=== PATIENT | male | born 1980 | race Caucasian/White ===

== ENCOUNTER → 2016-08-31 | Emergency (ER) | payer SELFPAY ==
[2016-08-31 20:02] VITALS: TEMP 97.7
--- NOTE | 2016-08-31 20:36 | ED.PDOC ---
History of Present Illness - General Chief Complaint: ENT Problem Stated Complaint: throat feels tight Time Seen by Provider: 08/31/16 20:30 Source: patient, family Exam Limitations: no limitations Additional Information: PT STATES H/O JORGE AND WHEN HE TRIES TO YAWN, HIS THROAT FEELS BLOCKED. STARTED LAST NOC. SIMILAR HAS HAPPENED 2X PRIOR AND HIS PCP (KASSY BRODY IN [place]) ORDERED SLEEP STUDY BUT PT REFUSED D/T COST. I INFORMED PT ABOUT FREE OR LOW COST HOME APNEA STUDY. DENIES RECENT URI. IS COVERED IN TATTOOS AND NURSES STATE HE WAS POS FOR METH IN THE PAST BUT PT AND GIRLFRIEND DENY ILLICIT DRUG USE. IT DID NOT START AFTER EATING (NO FOOD BOLUS). - History of Present Illness Timing/Duration: gradual Prearrival Treatment: no prearrival treatment Improving Factors: nothing Worsening Factors: nothing Allergies/Adverse Reactions: Allergies NO KNOWN ALLERGY Allergy (Verified 06/15/16 21:00) Home Medications: Ambulatory Orders NK [NK] 08/31/16 Review of Systems - Review of Systems Constitutional: Denies: chills, diaphoresis, fever, malaise, weakness EENTM: Denies: blurred vision, ear pain, ear discharge, nose congestion, throat pain, mouth pain Respiratory: Denies: cough, stridor, wheezing Cardiology: States: no symptoms reported. Denies: chest pain Gastrointestinal/Abdominal: States: no symptoms reported Genitourinary: States: no symptoms reported Musculoskeletal: States: no symptoms reported Skin: States: no symptoms reported Neurological: States: no symptoms reported Endocrine: States: no symptoms reported Hematologic/Lymphatic: States: no symptoms reported All other Systems: Reviewed and Negative Past Medical History (General) - Patient Medical History Hx Seizures: No Hx Stroke: No Hx Dementia: No Hx Asthma: No Hx of COPD: No Hx Cardiac Disorders: No Hx Congestive Heart Failure: No Hx Pacemaker: No Hx Hypertension: No Hx Thyroid Disease: No Hx Diabetes: No Hx Gastroesophageal Reflux: No Hx Renal Disease: No - Vaccination History Hx Tetanus, Diphtheria Vaccination: Yes Hx Influenza Vaccination: No Hx Pneumococcal Vaccination: No - Social History Hx Tobacco Use: No Hx Alcohol Use: No Hx Substance Use: Yes Hx Substance Use Treatment: Yes Hx Depression: Yes - Female History Patient : No Family Medical History - Family History Mother Family History: Unknown Living Status: Physical Exam - Physical Exam General Appearance: Alert, Other - TATTOES ON MOST EXPOSED SKIN INCLUDING FACE. Eye Exam: bilateral normal Ear Exam: bilateral ear: TM normal Nasal Exam: normal inspection Throat Exam: normal mouth inspection, pharynx normal, other - NO DROOLING Neck: non-tender, full range of motion, supple, other - NO EDEMA. Cardiovascular/Respiratory: regular rate, rhythm, no M/R/G, normal peripheral pulses, no JVD, normal breath sounds, no respiratory distress Abdominal Exam: non-tender Neurologic: supervisor photoengraving II-XII nml as tested, no motor/sensory deficits, oriented x 3 Skin Exam: normal color, warm/dry Progress - Results/Orders Results/Orders: XRAY SOFT TISSUE NECK NEG. P.E. NEG FOR AIRWAY CONCERN. LUNGS CLEAR. NO DROOLING. NECK NTTP AND NO MASSES. OROPHARYNX CLEAR. PT REMAINED IN E.D. FOR APPROX 2 HRS AFTER I INFORMED THE STAFF HE WAS SAFE FOR DC. AFTER MY LACERATION REPAIR I NOTICED HE WAS STILL IN ED SO I SPOKE WITH HIM AGAIN AND EXPLAINED HE WAS SAFE FOR DC AND ADVISED TO F/U WITH PCP AND SEE ENT FOR POSSIBLE PHARYNGOSCOPE FOR FURTHER EVAL. HE EXPRESSED HE WAS COMFORTABLE WITH THIS PLAN. SOME TIME AFTER THEN, THE PT ELOPED WITHOUT STAFF' S KNOWLEDGE, HENCE HE WAS NOT DISCHARGED AND DID NOT SIGN AMA FORM. Departure - Departure Clinical Impression: Globus sensation Disposition: Left Against Medical Advice Condition: Good Departure Forms: ED Discharge - Pt. Copy, Patient Portal Self Enrollment Diet: resume usual diet Referrals: [Primary Care Provider] - 1-5 Days Home Medications: Ambulatory Orders NK [NK] 08/31/16
[2016-08-31 22:29] VITALS: BP 117/65; O2SAT 99
--- NOTE | 2016-09-21 23:54 | RAD ---
EXAM: Neck,Soft Tissue CLINICAL INDICATION: 36-year-old male with feels like throat is closing. TECHNIQUE: Two-view, PA and lateral projections of theSoft tissues were obtained. COMPARISON: None. FINDINGS: Limited view of the lung apices are clear. Prevertebral soft tissues are within normal limits. The airway is patent. The visualized bones reveal mild degenerative change of the cervical spine. IMPRESSION: No specific findings are noted to suggest etiology of the patient's symptoms. Electronically signed by: Rivka Hines MD 08/31/2016 9:18 PM HEADING MACHINE OPERATOR
== END | disposition left against medical advice (07) ==
LOC: ER 19:43
DX: F45.8 Other somatoform disorders (principal)

== ENCOUNTER → 2016-09-18 | Outpatient (CLI) | payer MEDICAID, OTHER ==
--- NOTE | 2016-09-19 16:15 | RAD ---
EXAM DESCRIPTION: XR KNEE 4 OR MORE VIEWS CLINICAL HISTORY: KNEE PAIN COMPARISON: October 19, 2013 IMPRESSION: Three views of the left knee show no evidence of acute fracture, focal bone destruction, or joint dislocation. No advanced arthrosis is seen. Soft tissues are unremarkable. Electronically signed by: Tc Torres MD 09/19/2016 16:13
== END | disposition home or self-care (01) ==
LOC: RAD 12:17
PROVIDERS: ATTEND Nurse Practitioner Family
DX: M25.562 Pain in left knee (principal)

== ENCOUNTER 2016-09-21 19:37 | Emergency (ER) | payer MEDICAID, OTHER ==
[2016-09-21] MEDS ORDERED: IPRATROPIUM/ALBUTEROL 3 ML VIAL NEB ONE (20:18)
[2016-09-21] MEDS ORDERED: AZITHROMYCIN 250 MG TAB PO ONE (21:17)
--- NOTE | 2016-09-21 21:20 | ED.PDOC ---
History of Present Illness - General Chief Complaint: Back Pain or Injury Stated Complaint: back pain, left knee pain Time Seen by Provider: 09/21/16 20:06 Source: patient Exam Limitations: no limitations - History of Present Illness Initial Comments: The patient is a 36-year-old male with a fairly convoluted medical history. The patient has had significant ligamentous injury to his left knee for several years. He was apparently scheduled for surgery but then went to shelter and did not get it done. He has been reporting for the last 3 months and instability in the knee with going up stairs and with certain movements at work. The knee is causing him some pain. No recent real injuries. No falls. The patient is also reporting some malaise and some mild diffuse mid to upper back discomfort. He is reporting a mild cough and possibly some mild low-grade fevers. He does have a history of drug abuse. No syncope or near-syncope. No chest pain or palpitations. Timing/Duration: unsure, 24 hours Severity: moderate Improving Factors: nothing Worsening Factors: movement Associated Symptoms: cough, loss of appetite, malaise Allergies/Adverse Reactions: Allergies NO KNOWN ALLERGY Allergy (Verified 06/15/16 21:00) Home Medications: Ambulatory Orders Azithromycin 500 mg PO DAILY #5 tab 09/21/16 Review of Systems - Review of Systems Constitutional: States: fever, malaise EENTM: States: nose congestion Respiratory: States: cough, short of breath - mild Cardiology: States: no symptoms reported Gastrointestinal/Abdominal: States: no symptoms reported Genitourinary: States: no symptoms reported Musculoskeletal: States: back pain Skin: States: no symptoms reported Neurological: States: no symptoms reported All other Systems: No Change from Baseline Past Medical History (General) - Patient Medical History Hx Seizures: No Hx Stroke: No Hx Dementia: No Hx Asthma: No Hx of COPD: No Hx Cardiac Disorders: No Hx Congestive Heart Failure: No Hx Pacemaker: No Hx Hypertension: No Hx Thyroid Disease: No Hx Diabetes: No Hx Gastroesophageal Reflux: No Hx Renal Disease: No Surgical History: other - Vaccination History Hx Tetanus, Diphtheria Vaccination: Yes Hx Influenza Vaccination: No Hx Pneumococcal Vaccination: No Immunizations Up to Date: Yes - Social History Hx Tobacco Use: Yes Hx Alcohol Use: Yes Hx Substance Use: Yes Hx Substance Use Treatment: Yes Hx Depression: Yes - Female History Patient : No Family Medical History - Family History Mother Family History: Unknown Living Status: Physical Exam - Physical Exam General Appearance: Alert, Comfortable, No apparent distress Eye Exam: bilateral normal Ears, Nose, Throat: hearing grossly normal, normal pharynx, nasal congestion Neck: full range of motion, supple Respiratory: chest non-tender, no respiratory distress, no accessory muscle use , rales - mild left lower lobe Cardiovascular/Chest: normal peripheral pulses, regular rate, rhythm, no edema Peripheral Pulses: radial,right: 2+, radial,left: 2+, dorsalis pedis,right: 2+, dorsalis pedis,left: 2+, posterior tibialis,right: 2+, posterior tibialis,left: 2+ Gastrointestinal/Abdominal: non tender, soft Rectal Exam: deferred Back Exam: normal inspection, no CVA tenderness, no vertebral tenderness Extremity: normal range of motion, normal inspection, no pedal edema, no calf tenderness, normal capillary refill, other - he does favor the left knee when walking Neurologic: no motor/sensory deficits, alert, normal mood/affect, oriented x 3 Skin Exam: normal color, other - he does have significant hair loss below the mid howard line. Pulses are strong and palpable in the dorsalis pedis and posterior tibialis Comments: Vital Signs - 24 hr 09/21/16 09/21/16 19:58 20:26 Temperature 99.1 F Pulse Rate [ 108 H monitor] Respiratory 20 20 Rate Blood Pressure 119/81 [Left Arm] O2 Sat by Pulse 93 L Oximetry Progress - Progress Progress: 09/21/16 21:22 the patient is a 36-year-old male presenting with several different complaints. The patient has a long-standing left knee injury and is being placed in a knee immobilizer. He needs to follow up with orthopedics for further evaluation. Ibuprofen can be used for discomfort for this. Additionally the patient may have a small left lower lobe pneumonia. He was given a dose of azithromycin tonight and will be written for 5 days as an outpatient. He needs to follow up with his primary care doctor towards the end of the course to make sure that his lungs are clearing up and to address any residual issues. ER warnings are given for any acute worsening. Keep well- hydrated. 09/21/16 21:25 the patient has had recent x-rays and lab work that are reassuring. He does need to avoid drug use. A nebulizer treatment given to him here tonight did not make any difference. - Results/Orders Results/Orders: 09/21/16 20:16 DME - Durable Medical Equ[employer] .ONCE 09/21/16 20:59 [facility] .PRN Laboratory Results - last 24 hr 09/21/16 09/21/16 20:25 20:30 POC Glucose 103 Urine Color Yellow Urine Appearance Clear Urine pH 7.5 Ur Specific [place] 1.020 Urine Protein Negative Urine Glucose (UA) Negative Urine Ketones Negative Urine Blood Negative Urine Nitrite Negative Urine Bilirubin Negative Urine Urobilinogen 0.2 Ur Leukocyte Esterase Negative Urine RBC 0 Urine WBC 0-1 Ur Epithelial Cells 0-1 Urine Bacteria 0 Departure - Departure Clinical Impression: Pneumonia Qualifiers: Pneumonia type: due to unspecified organism Laterality: left Lung location: lower lobe of lung Qualifier Code: (J18.9) Pneumonia, unspecified organism Knee pain, chronic Qualifiers: Laterality: left Qualifier Code: (M25.562) Pain in left knee Disposition: Discharge to Home or Self Care Condition: Fair Departure Forms: ED Discharge - Pt. Copy, Patient Portal Self Enrollment Instructions: DI for Knee Pain, Pneumonia-Adult Diet: low salt diet Activity: no pushing/pulling with affected limb Referrals: [Primary Care Provider] - 1-2 Weeks Prescriptions: Azithromycin 500 mg PO DAILY #5 tab Home Medications: Ambulatory Orders Azithromycin 500 mg PO DAILY #5 tab 09/21/16 Additional Instructions: the patient is a 36-year-old male presenting with several different complaints. The patient has a long-standing left knee injury and is being placed in a knee immobilizer. He needs to follow up with orthopedics for further evaluation. Ibuprofen can be used for discomfort for this. Additionally the patient may have a small left lower lobe pneumonia. He was given a dose of azithromycin tonight and will be written for 5 days as an outpatient. He needs to follow up with his primary care doctor towards the end of the course to make sure that his lungs are clearing up and to address any residual issues. ER warnings are given for any acute worsening. Keep well- hydrated.
[2016-09-21 21:44] VITALS: BP 123/80; TEMP 99; O2SAT 94
== END 2016-09-21 21:44 | disposition home or self-care (01) ==
LOC: ER 19:37
DX: J18.9 Pneumonia, unspecified organism (principal); M25.562 Pain in left knee; Z87.891 Personal history of nicotine dependence
CPT/HCPCS: 36416; 81001; 82948; 87502; 94640; J7620; Q0144

== ENCOUNTER → 2016-10-07 | Outpatient (CLI) | payer MEDICAID, OTHER | LOC: SL 20:08 | PROVIDERS: ATTEND Nurse Practitioner Family | DX: G47.30 Sleep apnea, unspecified (principal) ==

== ENCOUNTER → 2016-10-13 | Outpatient (CLI) | payer MEDICAID, OTHER ==
--- NOTE | 2016-10-13 10:24 | RAD ---
EXAM DESCRIPTION: Knee,Left Complete CLINICAL HISTORY: PAIN IN LEFT KNEE COMPARISON: September 19, 2016 IMPRESSION: 3 standing views of the left knee show no evidence of acute fracture, focal bone destruction, or joint dislocation. No advanced arthrosis. There is an oval peripherally calcified structure posterior to the tibial plateau seen only on lateral projection new from previous. This could be external to the patient versus calcification or partly calcified body in possible Arndt's cyst. The calcification posterior to the joint seen on lateral projection of previous exam appears more cephalic on today's exam. This is not well seen on AP view and could also be within the joint space/Arndt's cyst or soft tissues. Electronically signed by: Tc Torres MD 10/13/2016 10:23 AM CDT
--- NOTE | 2016-10-13 10:26 | RAD ---
EXAM DESCRIPTION: Pelvis CLINICAL HISTORY: PAIN IN LEFT HIP COMPARISON: None. IMPRESSION: Single AP supine view of the pelvis shows no evidence of acute fracture, focal bone destruction, or joint dislocation. Smoothly marginated osseous body superior to the left trochanter could represent heterotopic ossification or sequela of prior trauma. There is a bony protuberance extending lateral and superior to the left acetabulum that could represent osteochondroma as there may be some continuation of the medullary space versus sequela of remote prior trauma. No advanced arthrosis is identified. Electronically signed by: Tc Torres MD 10/13/2016 10:26 AM CDT
== END | disposition home or self-care (01) ==
LOC: RAD 08:00
PROVIDERS: ATTEND Orthopaedic Surgery
DX: M25.562 Pain in left knee (principal); M25.552 Pain in left hip

== ENCOUNTER → 2016-10-20 | Outpatient (CLI) | payer OTHER | END | disposition home or self-care (01) | LOC: YCFC.O 14:42 | PROVIDERS: ATTEND Nurse Practitioner Family | DX: E03.9 Hypothyroidism, unspecified (principal); G47.33 Obstructive sleep apnea (adult) (pediatric) ==

== ENCOUNTER → 2016-10-21 | Outpatient (CLI) | payer MEDICAID, OTHER ==
--- NOTE | 2016-10-22 13:09 | MRI ---
EXAM DESCRIPTION: Knee,Left CLINICAL HISTORY: PAIN COMPARISON: None Available. TECHNIQUE: MRI of the left knee is performed according to our usual protocol with multiplanar multi sequence imaging. FINDINGS: Small left knee joint effusion. There is a small popliteal cyst which is complex with several elongated loose bodies within an unusual superior recess. These loose bodies are related almost certainly to the patellar chondrosis. Evaluation of articular surfaces of the left knee joint shows advanced patellofemoral chondrosis with a large area of mixed grade 3/4 chondrosis in the central superior aspect of the patella measuring about 10 mm in diameter. Deep fissuring, in areas full-thickness, and marked ragged irregular appearance of the articular surface is present in this region and there is subchondral edema and cyst formation/eburnation in this portion of the patella. There is grade 1/2 chondrosis throughout most of the trochlea with an area of focal grade 3 change in the inferior central trochlea. Medial and lateral compartment articular surfaces are unremarkable. Cruciate and collateral ligaments are intact. Menisci are intact. IMPRESSION: 1. 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 Electronically signed by: Renny Hawley MD 10/22/2016 1:08 PM CDT
== END | disposition home or self-care (01) ==
LOC: MRI 13:58
PROVIDERS: ATTEND Orthopaedic Surgery
DX: M17.12 Unilateral primary osteoarthritis, left knee (principal); M94.8X8 Other specified disorders of cartilage, other site

== ENCOUNTER → 2016-11-13 | Emergency (ER) | payer OTHER | END | disposition left against medical advice (07) | LOC: ER 22:20 | DX: Z53.21 Procedure and treatment not carried out due to patient leaving prior to being seen by health care provider (principal) ==

== ENCOUNTER → 2016-12-01 | Outpatient (CLI) | payer OTHER | LOC: RAD 08:22 | PROVIDERS: ATTEND Orthopaedic Surgery | DX: Z01.818 Encounter for other preprocedural examination (principal) ==

== ENCOUNTER 2016-12-23 05:40 | Day surgery (SDC) | payer OTHER ==
--- NOTE | 2016-12-18 09:01 | HP ---
CHIEF COMPLAINT: Left knee pain. HISTORY OF PRESENT ILLNESS: Beata is a 36-year-old male with a history of left knee pain that has been going on for a very long time. He has had remote trauma , but has not had any recent trauma. He denies any neurologic symptoms or radiation of pain. He has had extensive conservative measures which have included injections, anti-inflammatories, bracing and local modalities. Unfortunately, he has been unable to get any significant relief. Because of that, he has requested operative intervention. We have done MRI, x-rays, and physical examination which indicate there could be some intraarticular pathology , however, we have also talked about the fact that just given his lack of clear findings, we are not sure of the exact pathology and we will not know until the time of surgery. He understands that and the patient has given informed consent for knee arthroscopy. PAST SURGICAL HISTORY: None. MEDICATIONS: 1. Prozac. ALLERGIES: NO KNOWN DRUG ALLERGIES. CODE STATUS: Full code. IMMUNIZATIONS: Up to date. SOCIAL HISTORY: The patient denies tobacco, alcohol or drug use at this time. FAMILY HISTORY: None pertinent to today's complaint. REVIEW OF SYSTEMS: Negative except as indicated in the History of Present Illness. PHYSICAL EXAMINATION: VITAL SIGNS: Blood pressure 122/84. Pulse 83. Height 5'8". Weight 229. MENTAL STATUS: The patient is awake, alert, and is able to give a good history and participate in the physical. The patient is oriented to person, place and time. SKIN: Normal tone and turgor. MUSCULOSKELETAL: He is very tender along the medial joint-line. He has very slight increased anterior translation relative to the contralateral side. He does have a firm endpoint. He has no effusion today. He has some crepitus with range of motion and some light clicking medially. Strength is 5/5 throughout. There is no varus/valgus instability. ASSESSMENT: 1. Knee pain with possible meniscus tear. PLAN: The plan at this point is for knee arthroscopy. We have discussed the risks, benefits, and alternatives to that and the patient has given informed consent. #[id number] [facility]
--- NOTE | 2016-12-18 09:27 | RAD ---
EXAM DESCRIPTION: Chest,2 Views CLINICAL HISTORY: 36 years Male, respiratory evaluation prior to a surgical procedure IMPRESSION: Lungs are clear. No pleural effusion or pneumothorax. Heart size is normal. Electronically signed by: Willi Robles MD 12/18/2016 9:27 AM CDT
[2016-12-23] MEDS ORDERED: fentaNYL CITRATE INJ 50 MCG/ML AMP ONE (06:29)
[2016-12-23] MEDS ORDERED: LIDOCAINE 2 % GEL 5 ML TUBE TOP ONE ×2 (06:29→09:41)
[2016-12-23] MEDS ORDERED: ceFAZolin SODIUM 1 GM VIAL ONE ×2 (07:03→07:43)
[2016-12-23] MEDS ORDERED: BUPIVACAINE 0.25% W/EPI 50 ML VIAL INJ ONE (07:03)
[2016-12-23] MEDS ORDERED: VANCOMYCIN HCL INJ 1,000 MG VIAL IVPB ONE (07:04)
[2016-12-23] MEDS ORDERED: SODIUM CHL 0.9% 100ML MINI-BAG 100 ML IVPB ONE (07:43)
[2016-12-23] MEDS ORDERED: LACTATED RINGERS 1,000 ML ONE (07:43)
[2016-12-23] MEDS ORDERED: PROPOFOL 200 MG/20 ML VIAL IV ONE (12:00)
[2016-12-23] MEDS ORDERED: HYDROcodone 5MG/APAP 325MG 1 EA TAB PO ONE (12:35)
[2016-12-23] MEDS ORDERED: HYDROcodone 5MG/APAP 325MG 1 EA TAB ONE (12:40)
[2016-12-23 13:30] VITALS: BP 140/78; TEMP 98.3; O2SAT 95
--- NOTE | 2016-12-24 08:50 | OP ---
DATE OF PROCEDURE: 12/23/16 PREOPERATIVE DIAGNOSIS: 1. Knee pain. POSTOPERATIVE DIAGNOSIS: 1. 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 PROCEDURE: 1. Debridement/chondroplasty. SURGEON: Adi Monroy MD. BLINDSTITCH MACHINE OPERATOR: Russ Singh CST, SA-C. ANESTHESIA: General. COMPLICATIONS: None. FINDINGS: 1. Normal medial meniscus. 2. Normal medial compartment cartilage. 3. Normal anterior cruciate ligament, normal posterior cruciate ligament. 4. Normal lateral meniscus. 5. Area of nonarticular cartilage measuring about 1 by 0.8 cm on the lateral femoral condyle with previous cartilaginous damage and what appeared to be fibrous cartilaginous tissue overgrowth. 6. Normal lateral gutter. 7. Normal suprapatellar pouch. 8. Advanced chondromalacia of the patellofemoral joint with some unstable cartilage on the patella. 9. Normal medial gutter. INDICATION: Beata has a long history of pain in the knee with failure of conservative measures which have included anti-inflammatories, physical therapy , and injections. Subsequent to his failure of conservative measures and ongoing pain, he requested operative intervention. After discussing the risks, benefits and alternatives to that, the patient has given informed consent for the above procedures. PROCEDURE: The patient was brought to the Operating Room and placed in supine position. General anesthesia was induced and the patient's leg was sterilely prepped and draped. Following prepping and draping, standard anteromedial and anterolateral portals were established. Diagnostic arthroscopy was carried out with the above findings. Following diagnostic arthroscopy, attention was focused on the lateral femoral condyle. The camera was moved into the medial compartment and through the lateral portal, a 3.5 mm full radius shaver was used to debride the aforementioned defect to stable base. The camera was again placed back into the lateral portal and an accessory superolateral portal was established. The defect in the patella was thoroughly probed and a 3.5 mm full radius shaver was used to debride that. It was probed again. There were no unstable fragments. The knee was thoroughly irrigated and then drained. Following draining of the knee, the wounds were closed with Nylon suture. Sterile dressings were placed. The patient was awoken from anesthesia and taken to Recovery. POSTOPERATIVE INSTRUCTIONS: The patient will be partial weightbearing until followup with me in 2 days. We will consider physical therapy following surgical intervention. #[id number] [facility]
== END 2016-12-23 13:05 | disposition home or self-care (01) ==
LOC: AMB 05:40
PROVIDERS: ATTEND Orthopaedic Surgery
DX: M25.562 Pain in left knee (principal); M22.42 Chondromalacia patellae, left knee
CPT/HCPCS: 01400; 29877; 36415; 71020; 80048; 85025; J0690; J3010; J3370; J3490; J7050; J7120

== ENCOUNTER → 2016-12-30 | Outpatient (CLI) | payer OTHER ==
--- NOTE | 2016-12-30 10:23 | RAD ---
Study: Frontal and Lateral Views of the Chest. Indication: R06.00, S/P SURGERY X 7 DAYS Comparison: December 18, 2016. Impression: Heart size normal. Mild basilar atelectasis, otherwise lungs clear. No acute osseous abnormality. Electronically signed by: Franco Quezada MD 12/30/2016 10:23 AM CDT
== END | disposition home or self-care (01) ==
LOC: YCFC.O 10:02
PROVIDERS: ATTEND Nurse Practitioner Family
DX: R06.00 Dyspnea, unspecified (principal)

== ENCOUNTER 2017-12-02 20:37 | Observation (INO) | payer SELFPAY ==
[2017-12-02] MEDS ORDERED: SODIUM CHLORIDE 0.9% 1000ML 1,000 ML ONE (20:54)
[2017-12-02] MEDS ORDERED: SODIUM CHLORIDE 0.9% 1000ML 1,000 ML IVS ONE ×2 (20:55→20:59)
[2017-12-02] MEDS ORDERED: ONDANSETRON INJ 4 MG/2 ML VIAL IV ONE (20:57)
[2017-12-02] MEDS ORDERED: SODIUM CHLORIDE 0.9% (FLUSH) 10 ML SYG IV PRN (20:57)
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
--- NOTE | 2017-12-02 21:26 | RAD ---
EXAM DESCRIPTION: Chest,1 View CLINICAL HISTORY:37 years Male, heat exhaustion, dizzy, short of breath Comparison: December 30, 2016 FINDINGS: No focal lung consolidation. No pleural effusion. No pneumothorax. Cardiac and mediastinal silhouette is unremarkable. No acute osseous abnormality. Soft tissues are unremarkable. IMPRESSION: No acute findings. No focal lung consolidation. Electronically signed by: Terell Garcia MD 12/02/2017 9:24 PM CDT
[2017-12-02] MEDS ORDERED: LACTATED RINGERS 1,000 ML ONE (21:34)
[2017-12-02] MEDS ORDERED: LACTATED RINGERS 1,000 ML IVS ONE (21:35)
[2017-12-02] MEDS ORDERED: TETANUS,DIPHTHERIA,PERTUSSIS 1 EA SYG IM ONE (21:42)
[2017-12-02] MEDS ORDERED: SODIUM BICARBONATE VIAL 100 MEQ in SODIUM CHLORIDE 0.9% 1000ML 1,000 ML IVS PRN (22:51)
[2017-12-02] MEDS ORDERED: SODIUM BICARBONATE VIAL 50 MEQ/50 ML VIAL ONE (22:57)
[2017-12-02] MEDS ORDERED: MAGNESIUM SULFATE PREMIX 2GM 2 GM in PREMIX BAG 1 BAG IVPB ONE (23:11)
[2017-12-02] MEDS ORDERED: MAGNESIUM SULFATE PREMIX 2GM 50 ML IVPB ONE (23:16)
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
[2017-12-03] MEDS ORDERED: SODIUM CHLORIDE 0.9% 50ML 50 ML ONE (00:29)
[2017-12-03] MEDS ORDERED: MAGNESIUM SULFATE INJ 5 GM/10 ML VIAL ONE (00:30)
[2017-12-03] MEDS ORDERED: SODIUM CHLORIDE 0.9% (FLUSH) 10 ML SYG IV PRN (00:38)
[2017-12-03] MEDS ORDERED: IV SET AND CAP CHANGE INJ INJ SCH (01:00)
[2017-12-03] MEDS ORDERED: SODIUM BICARBONATE VIAL 50 MEQ/50 ML VIAL IV ONE (01:08)
[2017-12-03] MEDS ORDERED: DEXTROSE 5% 1000ML 1,000 ML IVS ONE ×5 (01:09→22:06)
[2017-12-03] MEDS ORDERED: SODIUM BICARBONATE VIAL 50 MEQ/50 ML VIAL ONE ×6 (01:09→22:14)
[2017-12-03] MEDS: SODIUM BICARBONATE VIAL 100 MEQ in DEXTROSE 5% 1000ML 1,000 ML IVS PRN ×4 (01:16→22:04)
[2017-12-03] MEDS: ENOXAPARIN SODIUM 40 MG/0.4 ML SYG SUBCU SCH (01:16)
[2017-12-03] MEDS ORDERED: ACETAMINOPHEN 500 MG TAB PO ONE (05:52)
[2017-12-03] MEDS ORDERED: POTASSIUM CHLORIDE 20 MEQ TAB PO ONE (11:02)
[2017-12-03] MEDS ORDERED: traMADol HCL 50 MG TAB PO PRN (11:02)
[2017-12-03] MEDS: PANTOPRAZOLE SODIUM IV 40 MG VIAL IV SCH (12:00)
[2017-12-03] MEDS ORDERED: HYDROcodone 5MG/APAP 325MG 1 EA TAB PO PRN (14:52)
[2017-12-03] MEDS ORDERED: TEMAZEPAM 15 MG CAP PO PRN (15:14)
[2017-12-03] MEDS ORDERED: traZODone HCL 50 MG TAB PO SCH (21:00)
[2017-12-03] MEDS ORDERED: traZODone HCL 100 MG TAB PO ONE (21:01)
[2017-12-03] MEDS ORDERED: FLUoxetine HCL 20 MG CAP ONE (21:01)
[2017-12-03] MEDS ORDERED: SODIUM BICARBONATE SYRINGE 50 MEQ/50 ML SYG IV ONE (22:07)
[2017-12-04] MEDS: ENOXAPARIN SODIUM 40 MG/0.4 ML SYG SUBCU SCH (00:51)
[2017-12-04] MEDS ORDERED: FLUoxetine HCL 20 MG CAP PO SCH (07:00)
[2017-12-04] MEDS ORDERED: POTASSIUM CHLORIDE 20 MEQ TAB PO ONE (08:18)
[2017-12-04] MEDS ORDERED: DULoxetine HCL 30 MG CAP PO SCH (09:00)
[2017-12-04] MEDS: PANTOPRAZOLE SODIUM IV 40 MG VIAL IV SCH (11:40)
[2017-12-04 12:57] VITALS: O2SAT 95
[2017-12-04 13:14] VITALS: BP 110/70; TEMP 98.7
--- NOTE | 2017-12-04 15:26 | DS ---
SUPERVISING PHYSICIAN: Ryne Velazco M.D. DISCHARGE DIAGNOSIS: 1. Acute kidney injury secondary to heat exhaustion. 2. Rhabdomyolysis secondary to heat exhaustion and dehydration. 3. Heat exhaustion. 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 He tried to drink water to hydrate, but each time he tried to hydrate, he vomited. He finished his shift and went home, took a shower and tried to rehydrate, but he was so weak and unable to keep fluids down that he came to the Emergency Room. In the Emergency Room, his sodium was 135 with potassium 3.8. Chloride 102, carbon dioxide 20, BUN 25, creatinine 1.52. Magnesium 1.7, bilirubin 1.7, AST 55, ALT 64, creatinine kinase 2001, CK-MB 10.2, troponin less than 0.02. Urinalysis showed moderate urine blood, small amount of urine bilirubin and 2+ urine bacteria. UDS was negative. WBCs 13.7, hemoglobin 16.1, hematocrit 46.5. The patient was admitted to the hospital for heat exhaustion, Rhabdomyolysis and acute kidney injury. HOSPITAL COURSE: He was given IV fluids with sodium bicarbonate in it. His next set of labs showed a normalized WBC with a creatinine kinase that went down to 1,121 and CK-MB of 6. Potassium was slightly low this morning at 3.3 and he was given potassium supplementation. Early this morning his creatinine kinase was 540 and his CK-MB was normalized at 2.8. Six hours after his initial creatinine kinase today another one was done and it is 452. He did complain of a mild headache during this hospitalization and was tenderness with Tramadol and [place]. He has been walking in the hallways and feels some better, although still weak but he can be discharged home in stable condition. DISCHARGE PLAN: The patient will be discharged home in stable condition. He is to resume his previous diet as well as his previous home medications. He is to followup with Hallie Hoang at [facility] within 2 weeks. He is to increase fluids. If he has any further complications or problems he is to return to the hospital. DISCHARGE MEDICATIONS: 1. Trazodone. 2. Cymbalta. 3. Tramadol. Dr. Velazco is the collaborating physician available for consultation. #[id number] [facility]
[2017-12-04] MEDS ORDERED: traZODone HCL 100 MG TAB PO SCH (21:00)
== END 2017-12-04 01:00 | disposition home or self-care (01) ==
LOC: ER 20:37 → MS 12-03 00:20
PROVIDERS: ADMIT Nurse Practitioner Acute Care; ATTEND Nurse Practitioner Acute Care
DX: N17.9 Acute kidney failure, unspecified (principal); T67.5XXA Heat exhaustion, unspecified, initial encounter; M62.82 Rhabdomyolysis; E86.0 Dehydration; E87.6 Hypokalemia; F32.9 Major depressive disorder, single episode, unspecified; G47.00 Insomnia, unspecified; Z79.899 Other long term (current) drug therapy; Z23 Encounter for immunization; X30.XXXA Exposure to excessive natural heat, initial encounter; Y93.89 Activity, other specified; Y92.65 Oil rig as the place of occurrence of the external cause; Y99.0 Civilian activity done for income or pay
CPT/HCPCS: 90471 ×2; 96366; 96372 ×2; 96375 ×2; 96376 ×2; J7060 ×5; J2405; J7030 ×2; A4216; J1650 ×2; J3475; 90715; J7120; 82553 ×3; 80053 ×2; 80307; 36415 ×5; 82550 ×4; 80048; 85025 ×3; 85730; 85610; 84484; 81001; 80076; 82552; 83735 ×2; 84100; 83880; 71045; 94760; 99285; 93005; G0378; 96361; 96365

== ENCOUNTER 2018-02-21 14:56 | Emergency (ER) | payer MEDICAID, OTHER ==
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
[2018-02-21] MEDS ORDERED: KETOROLAC TROMETHAMINE INJ 30 MG/ML VIAL IV ONE (15:44)
[2018-02-21] MEDS ORDERED: LACTATED RINGERS 1,000 ML IVS ONE (15:44)
[2018-02-21] MEDS ORDERED: PROMETHAZINE HCL INJ 25 MG/ML VIAL IM ONE (15:44)
[2018-02-21] MEDS ORDERED: INSULIN, REG.(HUMAN) 100 U/ML VIAL SUBCU ONE (17:21)
[2018-02-21] MEDS ORDERED: INSULIN, REG.(HUMAN) 100 U/ML VIAL IV ONE (17:23)
[2018-02-21] MEDS ORDERED: SODIUM CHLORIDE 0.9% 1000ML 1,000 ML IVS ONE (17:48)
--- NOTE | 2018-02-21 18:22 | CT ---
EXAM: CT Abdomen and Pelvis Without Intravenous Contrast CLINICAL HISTORY: The patient is 38 years old and is Male; N/V x48 hours/Pain in LEFT upper quadrant x1 week TECHNIQUE: Axial computed tomography images of the abdomen and pelvis without intravenous contrast. This exam was performed according to our departmental dose-optimization program, which includes automated exposure control, adjustment of the mA and/or kV according to patient size and/or use of iterative reconstruction technique. As a consequence of the lack of intravenous contrast, there is limited evaluation of the organs and soft tissues. Coronal and sagittal reformats were submitted and reviewed. COMPARISON: No relevant prior studies available. FINDINGS: LUNG BASES: Lung bases are clear. ABDOMEN: LIVER: There is hepatomegaly. Hepatic steatosis is identified. No intrahepatic lesions are noted. GALLBLADDER AND BILE DUCTS: Unremarkable. No calcified stones. No ductal dilation. PANCREAS: Unremarkable. No ductal dilation. SPLEEN: Unremarkable. No splenomegaly. No splenic lesion noted. ADRENALS: Unremarkable. No mass. KIDNEYS AND URETERS: There is an 8 mm calculus in the lower pole the LEFT kidney. There is a 4 mm calculus in the lower pole the RIGHT kidney. Neither of these are obstructing. 2 mm calculus is noted in the lower pole of the LEFT kidney as well. STOMACH AND BOWEL: There is no evidence of diverticulitis. There is no evidence of bowel obstruction. No diverticulitis. No bowel obstruction. PELVIS: APPENDIX: Normal appendix is noted in the RIGHT lower quadrant. BLADDER: Urinary bladder is unremarkable. No stones. REPRODUCTIVE: Central prostate calcifications are noted. ABDOMEN and PELVIS: INTRAPERITONEAL SPACE: Unremarkable. No free air. No significant fluid collection. BONES/JOINTS: No acute fracture. No dislocation. SOFT TISSUES: Rectus diastases is noted. VASCULATURE: Unremarkable. No abdominal aortic aneurysm. LYMPH NODES: Unremarkable. No significant retroperitoneal or pelvic lymphadenopathy. OTHER FINDINGS: There is no oral contrast. IMPRESSION: Hepatomegaly and hepatic steatosis. No evidence of obstructive uropathy. Nephrolithiasis as described. No evidence of diverticulitis. Electronically signed by: Brenden Sorenson MD 02/21/2018 6:21 PM CDT
[2018-02-21 19:24] VITALS: O2SAT 97
[2018-02-21 20:01] VITALS: BP 127/82
[2018-02-21 20:12] VITALS: TEMP 98.1
== END 2018-02-21 20:11 | disposition home or self-care (01) ==
LOC: ER 14:56
DX: K75.81 Nonalcoholic steatohepatitis (NASH) (principal); E74.8 Other specified disorders of carbohydrate metabolism; E11.9 Type 2 diabetes mellitus without complications
CPT/HCPCS: 36415; 74176; 80048; 81001; 85025; J1885; J2550; J7030; J7120

== ENCOUNTER 2018-02-23 11:32 | Inpatient (IN) | payer OTHER ==
--- NOTE | 2018-02-23 11:38 | ED.PDOC ---
History of Present Illness - General Chief Complaint: Cardiovascular Problem Stated Complaint: palpitations Time Seen by Provider: 02/23/18 11:37 Source: patient Exam Limitations: no limitations - History of Present Illness Initial Comments: Beata Mccray 38 y/o male stated after coming from his Md check up this morning as he was going to hospital lab. to get additional blood work felt heart was raising and felt sharp shooting left sided chest pains non radiating,no diaphoresis ,no dizziness.Has been diagnosed with new onset DM 2 and ALMAGUER 2 days ago and already prescribed medications. Timing/Duration: 1-3 hours Severity: moderate Improving Factors: nothing Worsening Factors: nothing Associated Symptoms: other - see hpi Allergies/Adverse Reactions: Allergies NO KNOWN ALLERGY Allergy (Verified 02/21/18 15:09) Home Medications: Ambulatory Orders Duloxetine HCl [Cymbalta] 60 mg PO DAILY 12/03/17 traZODone HCL [Desyrel] 100 mg PO BEDTIME 12/03/17 Tramadol HCl 50 - 100 mg PO Q6H #20 tab 12/04/17 Review of Systems - Review of Systems Constitutional: States: no symptoms reported EENTM: States: no symptoms reported Respiratory: States: no symptoms reported Cardiology: States: see HPI Gastrointestinal/Abdominal: States: no symptoms reported Genitourinary: States: no symptoms reported Musculoskeletal: States: no symptoms reported Skin: States: no symptoms reported Neurological: States: no symptoms reported Endocrine: States: no symptoms reported All other Systems: Reviewed and Negative, No Change from Baseline Past Medical History (General) - Patient Medical History Hx Seizures: No Hx Stroke: No Hx Dementia: No Hx Asthma: No Hx of COPD: No Hx Cardiac Disorders: No Hx Congestive Heart Failure: No Hx Pacemaker: No Hx Hypertension: No Hx Thyroid Disease: No Hx Diabetes: No Hx Gastroesophageal Reflux: No Hx Renal Disease: No Hx MRSA: No Surgical History: other - abdominal explore lap - Vaccination History Hx Tetanus, Diphtheria Vaccination: Yes Hx Influenza Vaccination: Yes Hx Pneumococcal Vaccination: No - Social History Hx Tobacco Use: No Hx Alcohol Use: No Hx Substance Use: No Hx Substance Use Treatment: Yes Hx Depression: Yes Hx Physical Abuse: No Hx Emotional Abuse: No - Female History Patient : No Family Medical History - Family History Mother Family History: Unknown Living Status: Physical Exam - Physical Exam General Appearance: Alert, Comfortable, No apparent distress Eye Exam: bilateral normal Ears, Nose, Throat: hearing grossly normal, normal ENT inspection, normal pharynx Neck: non-tender, full range of motion, supple Respiratory: chest non-tender, normal breath sounds, no respiratory distress Cardiovascular/Chest: normal peripheral pulses, regular rate, rhythm, no murmur , tachycardia - HR-99 Peripheral Pulses: radial,right: 2+, radial,left: 2+ Gastrointestinal/Abdominal: normal bowel sounds, non tender, soft, no organomegaly Back Exam: no CVA tenderness, no vertebral tenderness Extremity: non-tender, no pedal edema, no calf tenderness Neurologic: alert, oriented x 3 Skin Exam: normal color, warm/dry Progress - Progress Progress: 02/23/18 11:40 Vital Signs - 8 hr 02/23/18 11:35 Temperature 98.1 F Pulse Rate [ 100 H Apical] Respiratory 18 Rate Blood Pressure 125/87 [Left Arm] O2 Sat by Pulse 96 Oximetry - Results/Orders Results/Orders: 02/23/18 11:46 B-TYPE NATRIURETIC PEPTIDE/BNP Stat CARDIAC PANEL,ER Stat HEPATIC FUNCTION PANEL Stat D-DIMER,QUANTITATIVE Stat 02/23/18 12:15 EKG STAT Laboratory Results - last 24 hr 02/23/18 02/23/18 02/23/18 11:39 11:46 12:03 WBC 5.2 RBC 4.89 Hgb 14.5 Hct 43.4 MCV 88.9 MCH 29.6 MCHC 33.4 RDW 13.6 Plt Count 164 MPV 9.5 Absolute Neuts (auto) 2.60 Absolute Lymphs (auto) 2.00 Absolute Monos (auto) 0.40 Absolute Eos (auto) 0.20 Absolute Basos (auto) 0.10 Neutrophils % 49.4 Lymphocytes % 37.7 Monocytes % 7.5 Eosinophils % 4.1 Basophils % 1.3 Sodium 136 Potassium 5.2 H D Chloride 95 L Carbon Dioxide 28 Anion Gap 18.2 H BUN 22 H D Creatinine 1.04 BUN/Creatinine Ratio 21.2 H Random Glucose 432 H* Hemoglobin A1c Serum Osmolality 245.6 L* Calcium 10.2 Magnesium 1.9 Total Bilirubin 1.4 H Direct Bilirubin 0.3 H Indirect Bilirubin 0.9 H AST 32 ALT 60 Alkaline Phosphatase 106 Creatine Kinase 116 CK-MB (CK-2) 1.8 CK-MB (CK-2) % 1.55 Troponin I < 0.02 Serum Total Protein 6.2 L Albumin 4.2 Triglycerides Cholesterol Cholesterol Risk Factr LDL Cholesterol Direct HDL Cholesterol Lipase 42 Urine Color Urine Appearance Urine pH Ur Specific [place] Urine Protein Urine Glucose (UA) Urine Ketones Urine Blood Urine Nitrite Urine Bilirubin Urine Urobilinogen Ur Leukocyte Esterase Urine RBC Urine WBC Ur Epithelial Cells Urine Bacteria Urine Opiates Screen Negative Urine Barbiturates Negative Ur Phencyclidine Scrn Negative U Amphetamin/Meth Scrn Negative U Benzodiazepines Scrn Negative U Cocaine Metab Screen Negative U Cannabinoids Screen Negative 02/23/18 02/23/18 02/23/18 12:17 12:22 14:19 WBC RBC Hgb Hct MCV MCH MCHC RDW Plt Count MPV Absolute Neuts (auto) Absolute Lymphs (auto) Absolute Monos (auto) Absolute Eos (auto) Absolute Basos (auto) Neutrophils % Lymphocytes % Monocytes % Eosinophils % Basophils % Sodium Potassium Chloride Carbon Dioxide Anion Gap BUN Creatinine BUN/Creatinine Ratio Random Glucose Hemoglobin A1c 10.6 H Serum Osmolality Calcium Magnesium Total Bilirubin Direct Bilirubin Indirect Bilirubin AST ALT Alkaline Phosphatase Creatine Kinase CK-MB (CK-2) CK-MB (CK-2) % Troponin I Serum Total Protein Albumin Triglycerides 6052 H Cholesterol 292 H* D Cholesterol Risk Factr 15.4 H LDL Cholesterol Direct HDL Cholesterol 19 L Lipase Urine Color Yellow Urine Appearance Clear Urine pH 5.0 Ur Specific [place] 1.015 Urine Protein 30 Urine Glucose (UA) >=1000 H Urine Ketones 40 H Urine Blood Small H Urine Nitrite Negative Urine Bilirubin Negative Urine Urobilinogen 0.2 Ur Leukocyte Esterase Negative Urine RBC 1-3 Urine WBC 0 Ur Epithelial Cells 0 Urine Bacteria 0 Urine Opiates Screen Urine Barbiturates Ur Phencyclidine Scrn U Amphetamin/Meth Scrn U Benzodiazepines Scrn U Cocaine Metab Screen U Cannabinoids Screen 02/23/18 14:41 WBC RBC Hgb Hct MCV MCH MCHC RDW Plt Count MPV Absolute Neuts (auto) Absolute Lymphs (auto) Absolute Monos (auto) Absolute Eos (auto) Absolute Basos (auto) Neutrophils % Lymphocytes % Monocytes % Eosinophils % Basophils % Sodium Potassium Chloride Carbon Dioxide Anion Gap BUN Creatinine BUN/Creatinine Ratio Random Glucose Hemoglobin A1c Serum Osmolality Calcium Magnesium Total Bilirubin Direct Bilirubin Indirect Bilirubin AST ALT Alkaline Phosphatase Creatine Kinase CK-MB (CK-2) CK-MB (CK-2) % Troponin I < 0.02 Serum Total Protein Albumin Triglycerides Cholesterol Cholesterol Risk Factr LDL Cholesterol Direct HDL Cholesterol Lipase Urine Color Urine Appearance Urine pH Ur Specific [place] Urine Protein Urine Glucose (UA) Urine Ketones Urine Blood Urine Nitrite Urine Bilirubin Urine Urobilinogen Ur Leukocyte Esterase Urine RBC Urine WBC Ur Epithelial Cells Urine Bacteria Urine Opiates Screen Urine Barbiturates Ur Phencyclidine Scrn U Amphetamin/Meth Scrn U Benzodiazepines Scrn U Cocaine Metab Screen U Cannabinoids Screen - EKG/XRAY/CT EKG: Sinus, no ST T wave changes Comments: HR-99;NSR Departure - Departure Clinical Impression: Palpitations, Hypercholesterolemia with hypertriglyceridemia, Nonalcoholic steatohepatitis (ALMAGUER) Chest pain Qualifiers: Chest pain type: unspecified Qualified Code(s): R07.9 - Chest pain, unspecified Diabetes type 2, uncontrolled Qualifiers: Diabetes mellitus alf insulin use: unspecified 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 insulin 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 status Diabetes mellitus complication status: with hyperglycemia Qualified Code( s): E11.65 - Type 2 diabetes mellitus with hyperglycemia Time of Disposition: 15:47 Disposition: Admit Patient Condition: Fair Departure Forms: Patient Portal Self Enrollment Referrals: Kelsy Barton NP [Primary Care Provider] - 1-2 Weeks Home Medications: Ambulatory Orders Duloxetine HCl [Cymbalta] 60 mg PO DAILY 12/03/17 traZODone HCL [Desyrel] 100 mg PO BEDTIME 12/03/17 Tramadol HCl 50 - 100 mg PO Q6H #20 tab 12/04/17 Decision To Admit - Decistion To Admit Decision to Admit Reason: Admit from ER Decision to Admit Date: 02/23/18 - D/W Bala Irene-ANP/Hospitalist Decision to Admit Time: 15:44
[2018-02-23] MEDS ORDERED: SODIUM CHLORIDE 0.9% 1000ML 1,000 ML IVS ONE (11:39)
[2018-02-23] MEDS ORDERED: INSULIN, REG.(HUMAN) 100 U/ML VIAL IV ONE ×2 (14:07→14:10)
[2018-02-23] MEDS ORDERED: INSULIN, REG.(HUMAN) 100 U/ML VIAL SUBCU ONE (14:18)
[2018-02-23] MEDS ORDERED: ASPIRIN TABLET 325 MG TAB PO ONE (15:47)
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
[2018-02-23] MEDS ORDERED: SODIUM CHLORIDE 0.9% (FLUSH) 10 ML SYG IV PRN (16:50)
[2018-02-23] MEDS ORDERED: NITROGLYCERIN 0.4 MG 25 EA TAB SL PRN (16:50)
[2018-02-23] MEDS ORDERED: MORPHINE SULFATE INJ 10 MG/ML VIAL IV PRN (16:50)
[2018-02-23] MEDS ORDERED: INSULIN, REG.(HUMAN) 250 UNITS in SODIUM CHL 0.9% 250ML (AVIVA) 247.5 ML IVPB SCH ×2 (17:00)
[2018-02-23] MEDS ORDERED: IV SET AND CAP CHANGE INJ INJ SCH (17:00)
[2018-02-23] MEDS ORDERED: SODIUM CHL 0.9% 250ML (AVIVA) 250 ML IVPB ONE (17:12)
[2018-02-23] MEDS ORDERED: INSULIN, REG.(HUMAN) 100 U/ML VIAL ONE (17:16)
[2018-02-23] MEDS: SODIUM CHLORIDE 0.9% 1000ML 1,000 ML IVS PRN (17:29)
[2018-02-23] MEDS: ENOXAPARIN SODIUM 40 MG/0.4 ML SYG SUBCU SCH (17:34)
[2018-02-24] MEDS: SODIUM CHLORIDE 0.9% 1000ML 1,000 ML IVS PRN ×3 (00:19→13:25)
[2018-02-24] MEDS: ACETAMINOPHEN 325 MG TAB PO PRN ×2 (00:34→20:20)
[2018-02-24] MEDS ORDERED: DEXTROSE 50% 25 GM/50 ML SYG IV PRN (00:59)
[2018-02-24] MEDS: SODIUM CHLORIDE 0.9% (FLUSH) 10 ML SYG IV SCH ×3 (04:33→22:34)
[2018-02-24] MEDS ORDERED: GLUCAGON INJ 1 MG VIAL SUBCU PRN (07:00)
[2018-02-24] MEDS: INSULIN LISPRO 100 UNITS/ML PEN SUBCU SCH ×4 (07:31→22:16)
[2018-02-24] MEDS: ASPIRIN TABLET 325 MG TAB PO SCH (08:53)
[2018-02-24] MEDS: FISH OIL 1,200 MG CAP PO SCH (17:09)
[2018-02-24] MEDS: ENOXAPARIN SODIUM 40 MG/0.4 ML SYG SUBCU SCH (17:10)
[2018-02-24] MEDS ORDERED: POLYVINYL ALCOHOL 1.4% OPHTH SOL 1 DROP ONE (20:59)
[2018-02-24] MEDS: INSULIN DETEMIR 100 UNITS/ML PEN SUBCU SCH (22:21)
--- NOTE | 2018-02-25 00:14 | PN ---
DATE: 02/24/18 SUPERVISING PHYSICIAN: Elías Sellers M.D. SUBJECTIVE: The patient is sitting up in his chair in his hospital room. He is eating his meal. He has no complaints of chest pain, shortness of breath, abdominal pain, nausea or vomiting. We discussed at length his discharge plan and starting new medications as well as his insulin, and he agrees with therapy. OBJECTIVE: VITAL SIGNS: Afebrile, heart rate 88, blood pressure 151/98, respiratory rate 16, O2 sat 97% on room air. RESPIRATORY: Essentially clear to auscultation bilaterally. CARDIAC: Regular rate and rhythm. GASTROINTESTINAL: Abdomen is soft, nondistended, non-tender. Bowel sounds are positive. EXTREMITIES: No cyanosis, clubbing or edema. NEUROLOGIC: He is awake, alert and oriented times three. LABORATORY: Blood sugars have run between 180 and 302. Sodium is slightly low at 132, chloride 100, triglycerides are improved to 3,970. His last cardiac enzymes are negative. CBC is within normal limits. All other labs and films have been reviewed via the EMR. ASSESSMENT: 1. Severe hypertriglyceridemia that has improved slightly. Admission was greater than 6,000. Today it was greater than 3,900. 2. Chest pain with palpitations. His cardiac enzymes have been negative. 3. Recently diagnosed with type 2 diabetes mellitus. 4. Nonalcoholic steatohepatitis that was recently diagnosed. 5. Morbid obesity. PLAN: We will continue present supportive care. His chest pain has been relieved and most likely those were due to his very high triglyceride count. He has been on fluids since admission and I will stop those at this time. His insulin drip was also stopped early this morning. I put him on sliding scale insulin as well as Levemir insulin tonight. I am not sure how quickly we can bring his triglyceride level down because it may be familial problem exacerbated by his diabetes, but I will start him on Gemfibrozil and [place]-3 today. He will have lab including a triglyceride level in the morning. He will need very close followup with Kelsy Barton on outpatient and most likely need a referral to an hospital clinic assistant. We will continue to monitor him closely and followup as needed. Dr. Sellers is the collaborating physician available for consultation. #[id number] [facility]
[2018-02-25] MEDS: GEMFIBROZIL 600 MG TAB PO SCH ×2 (07:37→17:16)
[2018-02-25] MEDS: INSULIN LISPRO 100 UNITS/ML PEN SUBCU SCH ×5 (07:38→20:59)
[2018-02-25] MEDS: ASPIRIN TABLET 325 MG TAB PO SCH (09:37)
[2018-02-25] MEDS: SODIUM CHLORIDE 0.9% (FLUSH) 10 ML SYG IV SCH ×2 (09:37→21:02)
[2018-02-25] MEDS: FISH OIL 1,200 MG CAP PO SCH (09:37)
--- NOTE | 2018-02-25 13:25 | DS ---
SUPERVISING PHYSICIAN: Elías Sellers MD DISCHARGE DIAGNOSIS: 1. Severe hypertriglyceridemia that has improved slightly. Admission triglycerides were greater than 6,000. Today, his triglycerides are 1443. 2. Chest pain with palpitations. His cardiac enzymes have been negative. 3. Recently diagnosed with type 2 diabetes mellitus. 4. Nonalcoholic steatohepatitis, recent diagnosis. 5. Morbid obesity. HISTORY OF PRESENT ILLNESS: This is a 38-year-old male patient who came to the Emergency Room with complaints of palpitations and some left sided chest pain. On Thursday, he was actually diagnosed with new onset diabetes mellitus, type 2, as well as nonalcoholic steatohepatitis. He went to his primary care provider, Kelsy Barton, Nurse Practitioner. She requested some lab studies. At the time he was in the hospital to get labs is when his palpitations and chest pains started. He was sent to the Emergency Room. His EKG did not show any acute findings. His initial troponins in the Emergency Room were negative. CBC was unremarkable. His coagulation studies were unable to be read due to the extremely lipemic specimen. Chemistries showed sodium 136, potassium 5.2, chloride 95, CO2 of 28, BUN 22, creatinine 1.04, glucose 432, calcium 10.2. Total bilirubin was 1.4, hemoglobin A1c was 10.6. His lipid panel showed triglyceride of 6,052 and total cholesterol was 292, LDL was not calculated due to extremely high triglyceride count. He was initially requested to be admitted for chest pain, but due to his high triglyceride count and the complications included, he was admitted to the Floor to monitor his chest pain as well as get his diabetes under control and to monitor his triglycerides. The patient denied any alcohol use, but has been recently diagnosed with nonalcoholic steatohepatitis. He does not know of any family members that have a high triglyceride count, but due to his high triglycerides, high blood sugars and his chest pain, he was placed on aggressive IV fluids with an insulin drip. HOSPITAL COURSE: Initially he was monitored overnight for chest pain and insulin drip. He had no further complaints of chest pains. His cardiac enzymes continued to be negative but serial triglycerides continued to be elevated. After 24 hours, his insulin drip was stopped and his fluids continued for an additional 12 hours. The second day, his triglycerides went down to 3900. Yesterday they were 2700. After the insulin drip was discontinued , he was placed on Accuchecks a.c. and h.s. with sliding scale insulin. For the last two nights, he was placed on 10 units of long-acting insulin. He has required extensive teaching by nursing and by myself for insulin administration , diabetic teaching, including dietary changes. He will need a workup by an livestock farmworker, with continued diabetic teaching, as well and close monitoring of his blood sugars as I believe his hypertriglyceridemia is most likely familial in origin and will continue to improve once his blood sugars are controlled. DISCHARGE PLAN: The patient will be discharged home in stable condition. He will see Kelsy Barton today at 3 PM. I have also called Trena Castrejon, Metal Flow Coordinator at [facility], and she will assist him with getting the referral to an livestock farmworker as well as getting prescription help. I am giving him the hospital sliding scale insulin for Humalog insulin. He has been instructed to take his blood sugars a.c. and h.s. and to use a sliding scale. He has been given both verbal and written instruction on how to dose his short-acting Humalog insulin. He has also been instructed to use his long-acting Levemir insulin. He started on 10 units at bedtime in the hospital. He is to base his Levemir dosing on his morning/fasting blood sugar. If his morning/fasting blood sugar is greater than 200, he is to increase his long-acting Levemir insulin by 1 unit each day that his morning/fasting blood sugar is greater than 200. Once his morning/fasting blood sugar has dropped below 200, he is to remain on that dose and contact his primary care provider, Kelsy Barton. I have also given him a prescription for a Glucometer and strips. We have also started him on gemfibrozil and fish oil. I have given him a prescription for both of those. If he has any questions or problems, he is to call Kelsy Barton 's office or return to the hospital. He is to increase his activity as tolerated. He has also been instructed about an 1800 to 2000 calorie ADA. He will need an endocrinology referral at his primary care provider's office for close followup on his diabetic control and his triglycerides. I have discontinued his venlafaxine as it can increase the risk of pancreatitis. DISCHARGE MEDICATIONS: 1. Trazodone. 2. Aspirin. 3. Gemfibrozil. 4. Levemir long-acting insulin. 5. Humalog short-acting insulin. 6. Fish oil. #[id number] [facility]
[2018-02-25] MEDS: ENOXAPARIN SODIUM 40 MG/0.4 ML SYG SUBCU SCH (17:46)
[2018-02-25] MEDS: INSULIN DETEMIR 100 UNITS/ML PEN SUBCU SCH (20:59)
[2018-02-26] MEDS: GEMFIBROZIL 600 MG TAB PO SCH (06:34)
[2018-02-26] MEDS: INSULIN LISPRO 100 UNITS/ML PEN SUBCU SCH (07:58)
--- NOTE | 2018-02-26 09:28 | PN ---
SUPERVISING PHYSICIAN: Elías Sellers M.D. DATE: 02/25/18 SUBJECTIVE: The patient is sitting up in his chair in his hospital room. He is eating his lunch. He is having a difficult time doing self injections of insulin dosing. I have done some education in regard to his diabetic diet as well as the injections and nursing will continue to help him self-administer his insulin. He is much more receptive at this time than he was yesterday. OBJECTIVE: VITAL SIGNS: Afebrile. Heart rate 84. Blood pressure 131/90. Respiratory rate 18. O2 saturation 98% on room air. RESPIRATORY: Essentially clear to auscultation bilaterally. CARDIAC: Regular rate and rhythm. NEUROLOGIC: He is awake, alert and oriented times three. LABORATORY: Electrolytes are basically within normal limits with sodium slightly low at 134. AST 48, ALT 77. Triglycerides are 2,760. All other labs and films have been reviewed via the EMR. ASSESSMENT: 1. Severe hypertriglyceridemia that has improved slightly. Admission was triglycerides were greater than 6,000. Today his triglycerides are 2,760. 2. Chest pain with palpitations. His cardiac enzymes have been negative. 3. Recently diagnosed with type 2 diabetes mellitus with hemoglobin A1c of 10.6. 4. Nonalcoholic steatohepatitis, recent diagnosis. 5. Morbid obesity. PLAN: We will continue present supportive care. He should be discharged in the morning. We will continue to give him close teaching in regard to his insulin administration. He will have an appointment with Kelsy Barton at [facility] tomorrow at 3. He will need an endocrinology referral at that time. Otherwise, we will continue to monitor him closely and follow as needed. Dr. Sellers is the collaborating physician available for consultation. #[id number] [facility]
[2018-02-26] MEDS: ASPIRIN TABLET 325 MG TAB PO SCH (09:53)
[2018-02-26] MEDS: FISH OIL 1,200 MG CAP PO SCH (09:53)
[2018-02-26] MEDS: SODIUM CHLORIDE 0.9% (FLUSH) 10 ML SYG IV SCH (09:53)
[2018-02-26 10:37] VITALS: BP 120/85; TEMP 96.8; O2SAT 96
== END 2018-02-26 11:30 | disposition home or self-care (01) | DRG 642 ==
LOC: ER 11:32 → MS 15:53
PROVIDERS: ADMIT Nurse Practitioner; ATTEND Nurse Practitioner Acute Care
DX: E78.1 Pure hyperglyceridemia (principal); Z68.41 Body mass index [BMI] 40.0-44.9, adult; R07.9 Chest pain, unspecified; E11.65 Type 2 diabetes mellitus with hyperglycemia; K75.81 Nonalcoholic steatohepatitis (NASH); F32.9 Major depressive disorder, single episode, unspecified; G47.00 Insomnia, unspecified; R00.2 Palpitations; E66.01 Morbid (severe) obesity due to excess calories; Z79.891 Long term (current) use of opiate analgesic; Z79.899 Other long term (current) drug therapy

== ENCOUNTER 2018-05-18 12:17 | Emergency (ER) | payer OTHER ==
[2018-05-18 12:59] VITALS: TEMP 98.4
--- NOTE | 2018-05-18 14:31 | RAD ---
EXAM DESCRIPTION: Chest,1 View CLINICAL HISTORY: 38 years Male, cough COMPARISON: December 02, 2017 TECHNIQUE: AP portable chest. FINDINGS: Lungs are clear. No consolidation. Heart normal size. IMPRESSION: Normal. Electronically signed by: Renny Hawley MD 05/18/2018 2:30 PM CDT
--- NOTE | 2018-05-18 16:07 | ED.PDOC ---
History of Present Illness - General Chief Complaint: General Stated Complaint: weakness,cough,sweating Time Seen by Provider: 05/18/18 15:18 Source: patient Exam Limitations: no limitations - History of Present Illness Initial Comments: TODAY, STARTED HAVING COUGH, GEN WEAKNESS AND NOT FEELING HIS USUAL WELL SELF. Severity: moderate Improving Factors: nothing Worsening Factors: nothing Associated Symptoms: cough Allergies/Adverse Reactions: Allergies NO KNOWN ALLERGY Allergy (Verified 02/21/18 15:09) Home Medications: Ambulatory Orders traZODone HCL [Desyrel] 100 mg PO BEDTIME 12/03/17 Aspirin 325 mg PO DAILY tab 02/25/18 Gemfibrozil [Lopid] 600 mg PO BIDAC #60 tab 02/25/18 Insulin Lispro [Humalog] 0 units SUBCU ACHS pen 02/25/18 [place]-3 Fatty Acids [Fish Oil] 1,200 mg PO DAILY #30 cap 02/25/18 Benzonatate 200 mg PO TID PRN #30 cap 05/18/18 Insulin Detemir [Levemir Pen] 16 units SUBCU BEDTIME 05/18/18 Metformin HCl 1,000 mg PO BID 05/18/18 Review of Systems - Review of Systems Constitutional: States: malaise, weakness. Denies: chills, diaphoresis, fever EENTM: Denies: ear pain, nose congestion, throat pain Respiratory: States: cough. Denies: short of breath Cardiology: Denies: chest pain, palpitations Gastrointestinal/Abdominal: Denies: abdominal pain, nausea, vomiting Genitourinary: States: no symptoms reported Musculoskeletal: States: no symptoms reported Skin: States: no symptoms reported Neurological: States: no symptoms reported Endocrine: States: no symptoms reported Hematologic/Lymphatic: States: no symptoms reported All other Systems: Reviewed and Negative Past Medical History (General) - Patient Medical History Hx Seizures: No Hx Stroke: No Hx Dementia: No Hx Asthma: No Hx of COPD: No Hx Cardiac Disorders: No Hx Congestive Heart Failure: No Hx Pacemaker: No Hx Hypertension: No Hx Thyroid Disease: No Hx Diabetes: Yes Hx Gastroesophageal Reflux: No Hx Renal Disease: No Hx Cancer: No Hx of HIV: No Hx Hepatitis C: No Hx MRSA: No - Vaccination History Hx Tetanus, Diphtheria Vaccination: Yes Hx Influenza Vaccination: No Hx Pneumococcal Vaccination: No - Social History Hx Tobacco Use: Yes Hx Chewing Tobacco Use: No Hx Alcohol Use: No Hx Substance Use: No Hx Substance Use Treatment: Yes Hx Depression: Yes Hx Physical Abuse: No Hx Emotional Abuse: No Hx Suspected Abuse: No - Female History Patient : No Family Medical History - Family History Father Living Status: Still Living Hx Family Diabetes: Yes Hx Family Cancer: Yes - BONE CANCER Mother Family History: Unknown Living Status: Physical Exam - Physical Exam General Appearance: Alert, Well Nourished Eye Exam: bilateral normal Ears, Nose, Throat: hearing grossly normal, normal ENT inspection, normal pharynx Neck: non-tender, full range of motion, supple Respiratory: lungs clear, normal breath sounds, no respiratory distress Cardiovascular/Chest: regular rate, rhythm, no murmur Peripheral Pulses: radial,right: 2+, radial,left: 2+ Gastrointestinal/Abdominal: normal bowel sounds, non tender, soft Extremity: normal range of motion, normal inspection Neurologic: no motor/sensory deficits, alert, normal mood/affect Skin Exam: normal color, warm/dry Lymphatic: no adenopathy Progress - Progress Progress: 05/18/18 16:09 CBC WBC 12, ELEV NEUTS. CMP, CXR, RAPID FLU NEG. VIRAL URI. TESSALON FOR COUGH. Departure - Departure Clinical Impression: Viral URI with cough, Neutrophilic leukocytosis Disposition: Discharge to Home or Self Care Condition: Good Departure Forms: ED Discharge - Pt. Copy, Patient Portal Self Enrollment Instructions: Viral Upper Respiratory Infection, Adult (DC) Diet: resume usual diet Activity: increase activity as tolerated Referrals: Kelsy Barton NP [Primary Care Provider] - 1-2 Weeks Prescriptions: Benzonatate 200 mg PO TID PRN #30 cap PRN Reason: Cough Home Medications: Ambulatory Orders traZODone HCL [Desyrel] 100 mg PO BEDTIME 12/03/17 Aspirin 325 mg PO DAILY tab 02/25/18 Gemfibrozil [Lopid] 600 mg PO BIDAC #60 tab 02/25/18 Insulin Lispro [Humalog] 0 units SUBCU ACHS pen 02/25/18 Kamiah-3 Fatty Acids [Fish Oil] 1,200 mg PO DAILY #30 cap 02/25/18 Benzonatate 200 mg PO TID PRN #30 cap 05/18/18 Insulin Detemir [Levemir Pen] 16 units SUBCU BEDTIME 05/18/18 Metformin HCl 1,000 mg PO BID 05/18/18
[2018-05-18 16:14] VITALS: BP 109/69; O2SAT 96
== END 2018-05-18 16:14 | disposition home or self-care (01) ==
LOC: ER 12:17
DX: J06.9 Acute upper respiratory infection, unspecified (principal); D72.828 Other elevated white blood cell count; E11.9 Type 2 diabetes mellitus without complications; F32.9 Major depressive disorder, single episode, unspecified; Z79.4 Long term (current) use of insulin; Z79.82 Long term (current) use of aspirin; Z79.899 Other long term (current) drug therapy

== ENCOUNTER 2018-06-18 19:43 | Emergency (ER) | payer MEDICAID, OTHER ==
[2018-06-18 20:16] VITALS: TEMP 99; O2SAT 94
[2018-06-18] MEDS ORDERED: LACTATED RINGERS 1,000 ML IVS ONE (20:41)
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
--- NOTE | 2018-06-18 21:04 | RAD ---
EXAM DESCRIPTION: Chest,1 View CLINICAL HISTORY: 38 years Male n/V COMPARISON: 05/18/2018. FINDINGS: The study is slightly suboptimal from patient body habitus. The cardiomediastinal silhouette appears unremarkable. No consolidating infiltrates or pleural effusions. No pneumothorax. IMPRESSION: No acute abnormality is identified. Electronically signed by: Jack Reid MD 06/18/2018 9:03 PM [facility]
[2018-06-18] MEDS ORDERED: ONDANSETRON INJ 4 MG/2 ML VIAL IV ONE (21:46)
[2018-06-18 22:39] VITALS: BP 129/65
== END 2018-06-18 22:39 | disposition home or self-care (01) ==
LOC: ER 19:43
DX: R11.2 Nausea with vomiting, unspecified (principal); R19.7 Diarrhea, unspecified; E86.0 Dehydration; F32.9 Major depressive disorder, single episode, unspecified; E11.9 Type 2 diabetes mellitus without complications; I10 Essential (primary) hypertension; Z79.82 Long term (current) use of aspirin; Z79.899 Other long term (current) drug therapy; Z79.4 Long term (current) use of insulin
CPT/HCPCS: 36415; 36416; 71045; 80053; 80307; 81001; 82948; 83605; 85025; J2405; J7120

== ENCOUNTER 2018-08-16 17:39 | Emergency (ER) | payer OTHER ==
[2018-08-16 17:55] VITALS: TEMP 98.4
[2018-08-16] MEDS ORDERED: ONDANSETRON INJ 4 MG/2 ML VIAL IV ONE (18:25)
--- NOTE | 2018-08-16 18:42 | ED.PDOC ---
History of Present Illness - General Source: patient Exam Limitations: no limitations - History of Present Illness Initial Comments: Patient presents with weakness and nausea that started yesterday. Today he was in the shower and had 7 episodes of vomiting. He says his right side has been hurting for months. He has IDDM and the last time he had similar symptoms was when he was diagnosed with DM 9 months ago. He says he has kidney stones but hasn't passed any that he knows of. The pain is aching in nature with no radiation. Worse with movement, better with rest. No other complaints. Timing/Duration: changing over time Severity: moderate Improving Factors: rest Worsening Factors: movement Associated Symptoms: nausea/vomiting <Aung Thompson - Last Filed: 08/17/18 07:12> <Santos Sellers - Last Filed: 08/17/18 09:27> - General Chief Complaint: GI Problem Stated Complaint: emesis x7 today Time Seen by Provider: 08/16/18 18:23 - History of Present Illness Allergies/Adverse Reactions: Allergies NO KNOWN ALLERGY Allergy (Verified 02/21/18 15:09) Home Medications: Ambulatory Orders traZODone HCL [Desyrel] 100 mg PO BEDTIME 12/03/17 Aspirin 325 mg PO DAILY tab 02/25/18 Insulin Lispro [Humalog] 0 units SUBCU ACHS pen 02/25/18 [place]-3 Fatty Acids [Fish Oil] 1,200 mg PO DAILY #30 cap 02/25/18 Insulin Detemir [Levemir Pen] 16 units SUBCU BEDTIME 05/18/18 Metformin HCl 1,000 mg PO BID 05/18/18 Gemfibrozil [Lopid] 600 mg PO BIDAC 08/16/18 Ondansetron [Zofran Odt] 4 mg PO Q4H PRN #10 tab 08/17/18 Review of Systems - Review of Systems Constitutional: States: no symptoms reported EENTM: States: no symptoms reported Respiratory: States: no symptoms reported Cardiology: States: no symptoms reported Gastrointestinal/Abdominal: States: see HPI Genitourinary: States: no symptoms reported Musculoskeletal: States: no symptoms reported Skin: States: no symptoms reported Neurological: States: no symptoms reported Endocrine: States: see HPI Hematologic/Lymphatic: States: no symptoms reported <Aung Thompson - Last Filed: 08/17/18 07:12> Past Medical History (General) - Patient Medical History Hx Seizures: No Hx Stroke: No Hx Dementia: No Hx Asthma: No Hx of COPD: No Hx Cardiac Disorders: No Hx Congestive Heart Failure: No Hx Pacemaker: No Hx Hypertension: Yes Hx Thyroid Disease: No Hx Diabetes: Yes Hx Gastroesophageal Reflux: No Hx Renal Disease: No Hx Cancer: No Hx of HIV: No Hx Hepatitis C: No Hx MRSA: No Surgical History: other - Vaccination History Hx Tetanus, Diphtheria Vaccination: Yes Hx Influenza Vaccination: No Hx Pneumococcal Vaccination: No - Social History Hx Tobacco Use: Yes Hx Chewing Tobacco Use: No Hx Alcohol Use: No Hx Substance Use: No Hx Substance Use Treatment: Yes Hx Depression: Yes Hx Physical Abuse: No Hx Emotional Abuse: No Hx Suspected Abuse: No - Female History Patient : No <Aung Thompson Last Filed: 08/17/18 07:12> Family Medical History - Family History Father Living Status: Still Living Hx Family Diabetes: Yes Hx Family Cancer: Yes - BONE CANCER Mother Family History: Unknown Living Status: <Aung Thompson - Last Filed: 08/17/18 07:12> Physical Exam - Physical Exam General Appearance: Alert Eye Exam: bilateral normal Ears, Nose, Throat: normal ENT inspection Neck: non-tender, full range of motion, supple Respiratory: lungs clear, normal breath sounds Cardiovascular/Chest: normal peripheral pulses, regular rate, rhythm, no edema Gastrointestinal/Abdominal: normal bowel sounds, non tender, soft Back Exam: no CVA tenderness, other - TTP over right flank Extremity: normal range of motion, non-tender, normal inspection Neurologic: no motor/sensory deficits, alert, normal mood/affect, oriented x 3 Skin Exam: normal color Lymphatic: no adenopathy <DonnaAung Last Filed: 08/17/18 07:12> Progress - Progress Progress: 08/17/18 05:56 Patient was started on insulin at 12 units/hour. Finger stick blood glucose was performed intermittently and the glucose followed down to less than 200. Lab reported a sodium of 112 and potassium of 2.6. NS with 20 meq KCl/liter was started at 500 ml/hour. A subsequent bmp reported a sodium of 107. The patient had the same headache that he had all night but a neurological exam was normal. The patient was alert and talkative. [facility] was originally called for transfer due to the hyponatremia and other electrolyte abnormalities. However, lab error was suspected since the precipitous drop in sodium along with the expected drop in blood glucose did not make physiological sense and the patient was asymptomatic. I ordered another BMP drawn by different lab personelle and the sodium was reported as 130. The transfer to [facility] was cancelled. Some of the labs were corrected on the computer but it was not possible to tell which ones were entered correctly and which ones might still be in error. Therefore, for the patient's safety, the labs from his visit before the 5:12 a.m. BMP were printed in hard copy but deleted from the computer so that future providers would not think that such labs were correct. The BMP from 5:12 was left on the computer because it was not diluted and the processing was overseen by a different laborer tree tapping. All labs from 5:12 on were then added to the computer. The patient's care was restarted from the beginning at 6:15 as if he had just arrived. I believed this to be the safest thing to do for the patient at that point. All presenting labs were reordered. 08/17/18 06:15 <Aung Thompson - Last Filed: 08/17/18 07:12> - Progress Progress: 08/17/18 09:14 the patient is a 38-year-old male presenting to the emergency room secondary to [id number] abdominal pain just left of center starting yesterday with some associated nausea and vomiting. He is feeling better this morning. He has received several liters of IV fluids and his received a fair amount of insulin as well for marked hyperglycemia. blood sugars are better than they were yesterday. The patient's stay was markedly extended due to laboratory error which has been corrected. The patient has been made aware of this and does understand. No evidence of diabetic ketoacidosis. Dehydration has been corrected. Nausea and vomiting has been corrected. He will be written for Zofran for any future use. This is most likely due to a viral gastroenteritis however there is the possibility that he may have had some omentum trapped in a umbilical hernia giving him the symptoms. CT scan is reassuring. Laboratory work is also reassuring. Follow up with primary care doctor later this week. He did receive an extra dose of Levemir this morning which should help to continue to push his blood sugars down over the next 24 hours. blood sugars are trending down currently. He needs to take his next dose of Levemir tonight. He also needs to continue using his preprandial insulin with sliding scale. Weight loss would be beneficial to prevent further complications from the umbilical hernia as well as controll diabetes. No evidence of bowel obstruction. ER warn ings were given for any worsening. - Results/Orders Results/Orders: Laboratory Tests 08/16/18 08/16/18 08/16/18 18:48 18:52 18:52 WBC 6.1 RBC 4.79 Hgb 13.9 L Hct 40.8 L MCV 85.1 MCH 29.0 MCHC 34.1 RDW 13.9 Plt Count 165 MPV 9.1 Absolute Neuts (auto) 3.30 Absolute Lymphs (auto) 2.10 Absolute Monos (auto) 0.40 Absolute Eos (auto) 0.10 Absolute Basos (auto) 0.10 Neutrophils % 54.6 Lymphocytes % 34.6 Monocytes % 7.3 Eosinophils % 2.4 Basophils % 1.1 pCO2 pO2 HCO3 ABG pH ABG O2 Saturation ABG Base Excess ABG Deoxyhemoglobin Oxyhemoglobin % Carboxyhemoglobin % Methemoglobin % Sat Calc Total Hemoglobin Sodium 125 L Potassium 3.5 L Chloride 87 L Carbon Dioxide 22 Anion Gap 19.5 H BUN 22 H Creatinine 1.05 BUN/Creatinine Ratio 21.0 H POC Glucose Random Glucose 492 H* Serum Osmolality 276.7 Calcium 8.9 Total Bilirubin 0.6 AST 44 H ALT 75 H Alkaline Phosphatase 109 Serum Total Protein 6.9 Albumin 4.5 Globulin 2.4 Albumin/Globulin Ratio 1.9 Lipase 47 Urine Color Yellow Urine Appearance Clear Urine pH 5.5 Ur Specific [place] 1.015 Urine Protein Negative Urine Glucose (UA) 500 H Urine Ketones 80 H Urine Blood Trace-intact H Urine Nitrite Negative Urine Bilirubin Negative Urine Urobilinogen 0.2 Ur Leukocyte Esterase Negative Urine RBC 0 Urine WBC 0 Ur Epithelial Cells 0 Urine Bacteria 0 08/16/18 08/16/18 08/16/18 20:08 21:39 22:38 WBC RBC Hgb Hct MCV MCH MCHC RDW Plt Count MPV Absolute Neuts (auto) Absolute Lymphs (auto) Absolute Monos (auto) Absolute Eos (auto) Absolute Basos (auto) Neutrophils % Lymphocytes % Monocytes % Eosinophils % Basophils % pCO2 38 pO2 36 L* HCO3 22.7 ABG pH 7.390 ABG O2 Saturation 69.3 L* ABG Base Excess -1.3 ABG Deoxyhemoglobin 29.3 H Oxyhemoglobin % 66.2 L Carboxyhemoglobin % 0.9 Methemoglobin % Sat 3.6 H Calc Total Hemoglobin 15.3 Sodium Potassium Chloride Carbon Dioxide Anion Gap BUN Creatinine BUN/Creatinine Ratio POC Glucose 322 H 257 H Random Glucose Serum Osmolality Calcium Total Bilirubin AST ALT Alkaline Phosphatase Serum Total Protein Albumin Globulin Albumin/Globulin Ratio Lipase Urine Color Urine Appearance Urine pH Ur Specific [place] Urine Protein Urine Glucose (UA) Urine Ketones Urine Blood Urine Nitrite Urine Bilirubin Urine Urobilinogen Ur Leukocyte Esterase Urine RBC Urine WBC Ur Epithelial Cells Urine Bacteria 08/16/18 08/17/18 08/17/18 23:20 00:20 02:38 WBC RBC Hgb Hct MCV MCH MCHC RDW Plt Count MPV Absolute Neuts (auto) Absolute Lymphs (auto) Absolute Monos (auto) Absolute Eos (auto) Absolute Basos (auto) Neutrophils % Lymphocytes % Monocytes % Eosinophils % Basophils % pCO2 pO2 HCO3 ABG pH ABG O2 Saturation ABG Base Excess ABG Deoxyhemoglobin Oxyhemoglobin % Carboxyhemoglobin % Methemoglobin % Sat Calc Total Hemoglobin Sodium 134 L Potassium 3.2 L Chloride 97 L Carbon Dioxide 24 Anion Gap 16.2 BUN 18 Creatinine 0.92 BUN/Creatinine Ratio 19.6 POC Glucose 197 H 296 H D Random Glucose 244 H D Serum Osmolality 234.0 L* Calcium 7.9 L Total Bilirubin AST ALT Alkaline Phosphatase Serum Total Protein Albumin Globulin Albumin/Globulin Ratio Lipase Urine Color Urine Appearance Urine pH Ur Specific [place] Urine Protein Urine Glucose (UA) Urine Ketones Urine Blood Urine Nitrite Urine Bilirubin Urine Urobilinogen Ur Leukocyte Esterase Urine RBC Urine WBC Ur Epithelial Cells Urine Bacteria 08/17/18 08/17/18 08/17/18 03:10 04:00 04:56 WBC RBC Hgb Hct MCV MCH MCHC RDW Plt Count MPV Absolute Neuts (auto) Absolute Lymphs (auto) Absolute Monos (auto) Absolute Eos (auto) Absolute Basos (auto) Neutrophils % Lymphocytes % Monocytes % Eosinophils % Basophils % pCO2 pO2 HCO3 ABG pH ABG O2 Saturation ABG Base Excess ABG Deoxyhemoglobin Oxyhemoglobin % Carboxyhemoglobin % Methemoglobin % Sat Calc Total Hemoglobin Sodium 128 L Potassium 3.6 Chloride 94 L Carbon Dioxide 33 H D Anion Gap 5.5 L BUN 16 Creatinine 0.63 BUN/Creatinine Ratio 25.4 H POC Glucose 375 H 400 H Random Glucose 297 H Serum Osmolality 224.6 L* Calcium 7.3 L Total Bilirubin AST ALT Alkaline Phosphatase Serum Total Protein Albumin Globulin Albumin/Globulin Ratio Lipase Urine Color Urine Appearance Urine pH Ur Specific [place] Urine Protein Urine Glucose (UA) Urine Ketones Urine Blood Urine Nitrite Urine Bilirubin Urine Urobilinogen Ur Leukocyte Esterase Urine RBC Urine WBC Ur Epithelial Cells Urine Bacteria 08/17/18 08/17/18 08/17/18 05:05 05:12 06:12 WBC 6.3 RBC 5.10 Hgb 15.2 Hct 44.0 MCV 86.1 MCH 29.8 MCHC 34.6 RDW 14.0 Plt Count 167 MPV 8.0 Absolute Neuts (auto) 3.40 Absolute Lymphs (auto) 2.20 Absolute Monos (auto) 0.50 Absolute Eos (auto) 0.10 Absolute Basos (auto) 0.00 Neutrophils % 54.3 Lymphocytes % 34.9 Monocytes % 8.1 Eosinophils % 2.3 Basophils % 0.4 pCO2 pO2 HCO3 ABG pH ABG O2 Saturation ABG Base Excess ABG Deoxyhemoglobin Oxyhemoglobin % Carboxyhemoglobin % Methemoglobin % Sat Calc Total Hemoglobin Sodium 130 L Potassium 4.3 Chloride 98 L Carbon Dioxide 20 L D Anion Gap 16.3 BUN 15 Creatinine 0.93 BUN/Creatinine Ratio 16.1 POC Glucose Random Glucose Cancelled 393 H D Serum Osmolality 278.0 Calcium 8.7 Total Bilirubin AST ALT Alkaline Phosphatase Serum Total Protein Albumin Globulin Albumin/Globulin Ratio Lipase Urine Color Urine Appearance Urine pH Ur Specific [place] Urine Protein Urine Glucose (UA) Urine Ketones Urine Blood Urine Nitrite Urine Bilirubin Urine Urobilinogen Ur Leukocyte Esterase Urine RBC Urine WBC Ur Epithelial Cells Urine Bacteria 08/17/18 08/17/18 06:12 07:07 WBC RBC Hgb Hct MCV MCH MCHC RDW Plt Count MPV Absolute Neuts (auto) Absolute Lymphs (auto) Absolute Monos (auto) Absolute Eos (auto) Absolute Basos (auto) Neutrophils % Lymphocytes % Monocytes % Eosinophils % Basophils % pCO2 34 L pO2 83 HCO3 18.6 ABG pH 7.360 ABG O2 Saturation 97.7 ABG Base Excess -5.4 ABG Deoxyhemoglobin 2.2 Oxyhemoglobin % 94.7 Carboxyhemoglobin % 1.0 Methemoglobin % Sat 2.2 H Calc Total Hemoglobin 14.3 Sodium 130 L Potassium 4.3 Chloride 97 L Carbon Dioxide 22 Anion Gap 15.3 BUN 15 Creatinine 0.84 BUN/Creatinine Ratio 17.9 POC Glucose Random Glucose 357 H Serum Osmolality 276.0 Calcium 8.5 Total Bilirubin 0.9 AST 27 ALT 45 Alkaline Phosphatase 75 D Serum Total Protein 6.7 Albumin 3.7 Globulin 3.0 Albumin/Globulin Ratio 1.2 Lipase Urine Color Urine Appearance Urine pH Ur Specific [place] Urine Protein Urine Glucose (UA) Urine Ketones Urine Blood Urine Nitrite Urine Bilirubin Urine Urobilinogen Ur Leukocyte Esterase Urine RBC Urine WBC Ur Epithelial Cells Urine Bacteria CT scan of abdomen and pelvis shows no acute pathology. On my exam of the CT scan he does appear to have an area about 1-1/2 cm in diameter centrally around where his umbilicus would be, where there does not appear to be any fascial tissue making up the abdominal wall. his abdominal pain by the time of CT scan had improved significantly so it is possible that he may have had some omental tissue stuck in a small ventral hernia causing the pain and symptoms. <Santos Sellers - Last Filed: 08/17/18 09:27> Departure <Aung Thompson - Last Filed: 08/17/18 07:12> - Departure Diet: diabetic diet Activity: increase activity as tolerated <Santos Sellers - Last Filed: 08/17/18 09:27> - Departure Clinical Impression: Hyperglycemia, Gastroenteritis Disposition: Discharge to Home or Self Care Condition: Fair Departure Forms: ED Discharge - Pt. Copy, Patient Portal Self Enrollment Instructions: DI for Gastritis Referrals: Randee Gonzales NP [Primary Care Provider] - 1-2 Weeks Prescriptions: Ondansetron [Zofran Odt] 4 mg PO Q4H PRN #10 tab PRN Reason: Vomiting Home Medications: Ambulatory Orders traZODone HCL [Desyrel] 100 mg PO BEDTIME 12/03/17 Aspirin 325 mg PO DAILY tab 02/25/18 Insulin Lispro [Humalog] 0 units SUBCU ACHS pen 02/25/18 [place]-3 Fatty Acids [Fish Oil] 1,200 mg PO DAILY #30 cap 02/25/18 Insulin Detemir [Levemir Pen] 16 units SUBCU BEDTIME 05/18/18 Metformin HCl 1,000 mg PO BID 05/18/18 Gemfibrozil [Lopid] 600 mg PO BIDAC 08/16/18 Ondansetron [Zofran Odt] 4 mg PO Q4H PRN #10 tab 08/17/18 Additional Instructions: the patient is a 38-year-old male presenting to the emergency room secondary to [id number] abdominal pain just left of center starting yesterday with some associated nausea and vomiting. He is feeling better this morning. He has received several liters of IV fluids and his received a fair amount of insulin as well for marked hyperglycemia. blood sugars are better than they were yesterday. The patient's stay was markedly extended due to laboratory error which has been corrected. The patient has been made aware of this and does understand. No evidence of diabetic ketoacidosis. Dehydration has been corrected. Nausea and vomiting has been corrected. He will be written for Zofran for any future use. This is most likely due to a viral gastroenteritis however there is the possibility that he may have had some omentum trapped in a umbilical hernia giving him the symptoms. CT scan is reassuring. Laboratory work is also reassuring. Follow up with primary care doctor later this week. He did receive an extra dose of Levemir this morning which should help to continue to push his blood sugars down over the next 24 hours. blood sugars are trending down currently. He needs to take his next dose of Levemir tonight. He also needs to continue using his preprandial insulin with sliding scale. Weight loss would be beneficial to prevent further complications from the umbilical hernia as well as controll diabetes. No evidence of bowel obstruction. ER warnings were given for any worsening.
[2018-08-16] MEDS ORDERED: SODIUM CHLORIDE 0.9% 1000ML 1,000 ML IVS ONE (19:38)
[2018-08-16] MEDS ORDERED: KCL 20MEQ/WATER FOR INJ 100ML 20 MEQ in PREMIX BAG 1 BAG IVPB ONE (19:42)
[2018-08-16] MEDS ORDERED: INSULIN, REG.(HUMAN) 250 UNITS in SODIUM CHL 0.9% 250ML (AVIVA) 247.5 ML IVPB SCH ×2 (20:00)
[2018-08-16] MEDS ORDERED: INSULIN, REG.(HUMAN) 100 U/ML VIAL ONE (20:22)
[2018-08-16] MEDS ORDERED: SODIUM CHL 0.9% 250ML (AVIVA) 250 ML IVPB ONE (20:22)
[2018-08-16] MEDS ORDERED: KCL 20MEQ/WATER FOR INJ 100ML 100 ML IVPB ONE (20:43)
[2018-08-16] MEDS ORDERED: ACETAMINOPHEN 325 MG TAB PO ONE (23:35)
[2018-08-17] MEDS ORDERED: CALCIUM CHLORIDE INJ 100 MG/ML SYG IV ONE (00:04)
[2018-08-17] MEDS ORDERED: POTASSIUM CHLORIDE 20 MEQ TAB PO ONE (00:04)
[2018-08-17] MEDS ORDERED: SODIUM CHLORIDE 0.9% 1000ML 1,000 ML IVS ONE (00:13)
[2018-08-17] MEDS ORDERED: KCL 20 MEQ/NS 1,000 ML IVS ONE (00:34)
[2018-08-17] MEDS ORDERED: SODIUM CHLORIDE 0.9% 50ML 50 ML ONE (01:01)
[2018-08-17] MEDS ORDERED: SOD CHL 3% *HYPERTONIC* 500ML 500 ML IVS ONE (04:55)
[2018-08-17 05:21] VITALS: BP 113/75
[2018-08-17] MEDS ORDERED: INSULIN, REG.(HUMAN) 100 U/ML VIAL IV ONE (07:57)
[2018-08-17] MEDS ORDERED: INSULIN DETEMIR 100 UNITS/ML PEN SUBCU ONE (07:57)
--- NOTE | 2018-08-17 08:35 | CT ---
Study: CT abdomen and pelvis. Indication: left mid/low abd pain nv 24 hrs Technique: CT of the abdomen and pelvis obtained without intravenous contrast. This exam was performed according to our departmental dose-optimization program, which includes automated exposure control, adjustment of the mA and/or kV according to patient size and/or use of iterative reconstruction technique. Comparison: None. Findings: Hepatic steatosis and hepatomegaly. Lower chest, gallbladder, pancreas, spleen, adrenal glands, bladder, and prostate gland demonstrate a normal unenhanced CT appearance. Several central nonobstructing bilateral renal calculi noted measuring up to 5.5 mm on the left and 4.8 mm on the right. No hydronephrosis. Stomach, small bowel, colon, and appendix unremarkable. No free fluid. No free air. No pathologically enlarged lymphadenopathy. No acute osseous abnormality. Ossification noted within the left gluteus minimus tendon indicating indicating remote avulsive injury. Focal osseous spurring along the superolateral margin of the left hip joint capsule. Impression: Multiple central nonobstructing bilateral renal calculi. No hydronephrosis. Hepatic steatosis and hepatomegaly. Electronically signed by: Franco Quezada MD 08/17/2018 8:34 AM [facility]
[2018-08-17 10:02] VITALS: O2SAT 96
== END 2018-08-17 09:50 | disposition home or self-care (01) ==
LOC: ER 17:39
DX: E11.65 Type 2 diabetes mellitus with hyperglycemia (principal); K52.9 Noninfective gastroenteritis and colitis, unspecified; K42.9 Umbilical hernia without obstruction or gangrene; I10 Essential (primary) hypertension; F32.9 Major depressive disorder, single episode, unspecified; Z87.891 Personal history of nicotine dependence; Z79.4 Long term (current) use of insulin; Z79.82 Long term (current) use of aspirin; Z79.899 Other long term (current) drug therapy
CPT/HCPCS: 36415; 36416; 36600; 74176; 80048; 80053; 81001; 82803; 82805; 82948; 83690; 85025; J1815; J2405; J3480; J7030

== ENCOUNTER 2018-08-29 16:27 | Emergency (ER) | payer OTHER ==
[2018-08-29] MEDS ORDERED: SODIUM CHLORIDE 0.9% 1000ML 1,000 ML IVS ONE ×3 (17:21→19:04)
[2018-08-29] MEDS ORDERED: ONDANSETRON INJ 4 MG/2 ML VIAL ONE (17:24)
[2018-08-29] MEDS ORDERED: ONDANSETRON INJ 4 MG/2 ML VIAL IV ONE (17:24)
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
[2018-08-29] MEDS ORDERED: INSULIN, REG.(HUMAN) 250 UNITS in SODIUM CHL 0.9% 250ML (AVIVA) 247.5 ML IVPB SCH ×2 (19:00)
[2018-08-29] MEDS ORDERED: INSULIN, REG.(HUMAN) 100 U/ML VIAL ONE (19:34)
[2018-08-29] MEDS ORDERED: SODIUM CHL 0.9% 250ML (AVIVA) 250 ML IVPB ONE (19:34)
--- NOTE | 2018-08-29 19:46 | CT ---
EXAM: Abdoment/Pelvis w/o Contrast CLINICAL INDICATION: 38-year-old male with nausea, vomiting and distention. COMPARISON: 08/17/2018. EXAMINATION: CT of the abdomen and pelvis was performed without intravenous or oral contrast. Multiplanar reformatted images were provided. This exam was performed according to our departmental dose optimization program which includes use of automated exposure control, adjustment of the mA and/or kV according to patient size and/or use of iterative reconstruction technique. FINDINGS: Evaluation of solid organ pathology is limited secondary to lack of intravenous contrast. Within these limitations, the following observations are made. Chest: Evaluation through the lung bases reveals no focal opacity, pleural effusion or pneumothorax. Heart size is within normal limits. No pericardial effusion. Abdomen and pelvis: Diffuse hepatic steatosis and hepatomegaly measuring 22.8 cm. Prominent appearance of the pancreas with peripancreatic stranding compatible with acute pancreatitis. No associated peripancreatic fluid collection or increased density to suggest hemorrhage. Coarse calcification present within the lower pole of the LEFT kidney measures 6 mm compatible with nonobstructing calculus. Renal pelvis calcification within the RIGHT kidney compatible with nonobstructing calculus measures 3 mm. The liver, gallbladder, pancreas, spleen, bilateral kidneys and bilateral adrenal glands are within normal limits. The vessels are normal in caliber. No abdominopelvic lymph nodes are noted to be pathologically enlarged by CT measurement criteria. The bowel is within normal limits without abnormal bowel wall thickness or bowel dilation. No free air. No free abdominopelvic fluid collections. The appendix is within normal limits. The osseous structures are within normal limits. IMPRESSION: 1. Acute, uncomplicated pancreatitis. 2. Diffuse hepatic steatosis and hepatomegaly. Electronically signed by: Rivka Hines MD 08/29/2018 7:44 PM [employer]
[2018-08-29] MEDS ORDERED: SODIUM CHLORIDE 0.9% 1000ML 1,000 ML IVS PRN (20:37)
[2018-08-29] MEDS ORDERED: KCL 20MEQ/D5 1/2NS 1,000 ML IVS PRN (22:32)
[2018-08-29] MEDS ORDERED: fentaNYL CITRATE INJ 50 MCG/ML AMP IV ONE (23:29)
[2018-08-30] MEDS ORDERED: SODIUM CHLORIDE 0.9% 1000ML 1,000 ML IVS ONE (00:51)
[2018-08-30 01:04] VITALS: TEMP 99.4
[2018-08-30 01:46] VITALS: BP 103/88; O2SAT 99
[2018-08-30] MEDS ORDERED: fentaNYL CITRATE INJ 50 MCG/ML AMP IV ONE (01:58)
== END 2018-08-30 01:57 | disposition short-term general hospital (02) ==
LOC: ER 16:27
DX: E10.10 Type 1 diabetes mellitus with ketoacidosis without coma (principal); K85.90 Acute pancreatitis without necrosis or infection, unspecified; K75.81 Nonalcoholic steatohepatitis (NASH); R11.2 Nausea with vomiting, unspecified; I10 Essential (primary) hypertension; F32.9 Major depressive disorder, single episode, unspecified; Z79.4 Long term (current) use of insulin; Z79.899 Other long term (current) drug therapy
CPT/HCPCS: 36600; 74176; 80048; 80053; 80307; 81001; 82550; 82553; 82803; 82805; 82947; 82948; 83690; 84100; 84484; 85025; 87502; J2405; J3010; J7030

== ENCOUNTER 2018-09-17 22:41 | Emergency (ER) | payer OTHER ==
[2018-09-17 22:56] VITALS: BP 159/107; TEMP 98.5; O2SAT 97
[2018-09-17] MEDS ORDERED: HYDROCOD/APAP 10/325 (ER DISP) # 3 tablets PO ONE (23:11)
[2018-09-17] MEDS ORDERED: HYDROcodone 10MG/APAP 325MG 1 EA TAB PO ONE (23:11)
[2018-09-17] MEDS ORDERED: CLINDAMYCIN HCL CAP 150 MG CAP PO ONE (23:12)
--- NOTE | 2018-09-17 23:17 | ED.PDOC ---
History of Present Illness - General Chief Complaint: Dental/Mouth Stated Complaint: tooth pain Time Seen by Provider: 09/17/18 23:07 Source: patient Exam Limitations: no limitations - History of Present Illness Initial Comments: THREE DAY HISTORY OF TOOTHACHE, SO BAD THAT HE FEELS HE IS GOING TO PASS OUT. Timing/Duration: gradual EENT Location: mouth Prearrival Treatment: no prearrival treatment Improving Factors: nothing Allergies/Adverse Reactions: Allergies NO KNOWN ALLERGY Allergy (Verified 02/21/18 15:09) Home Medications: Ambulatory Orders traZODone HCL [Desyrel] 100 mg PO BEDTIME 12/03/17 Aspirin 325 mg PO DAILY tab 02/25/18 Insulin Lispro [Humalog] 0 units SUBCU ACHS pen 02/25/18 [place]-3 Fatty Acids [Fish Oil] 1,200 mg PO DAILY #30 cap 02/25/18 Insulin Detemir [Levemir Pen] 16 units SUBCU BEDTIME 05/18/18 Metformin HCl 1,000 mg PO BID 05/18/18 Gemfibrozil [Lopid] 600 mg PO BIDAC 08/16/18 Ondansetron [Zofran Odt] 4 mg PO Q4H PRN #10 tab 08/17/18 Acetaminophen W/ Codeine [Tylenol W/ CODEINE #3] 1 ea PO Q6HRS #15 09/17/18 Clindamycin HCl 300 mg PO Q6HRS #40 cap 09/17/18 Review of Systems - Review of Systems Constitutional: States: no symptoms reported EENTM: States: mouth pain Respiratory: States: no symptoms reported Cardiology: States: no symptoms reported Gastrointestinal/Abdominal: States: no symptoms reported Genitourinary: States: no symptoms reported Musculoskeletal: States: no symptoms reported Past Medical History (General) - Patient Medical History Hx Seizures: No Hx Stroke: No Hx Dementia: No Hx Asthma: No Hx of COPD: No Hx Cardiac Disorders: No Hx Congestive Heart Failure: No Hx Pacemaker: No Hx Hypertension: Yes Hx Thyroid Disease: No Hx Diabetes: Yes Hx Gastroesophageal Reflux: No Hx Renal Disease: No Hx Cancer: No Hx of HIV: No Hx Hepatitis C: No Hx MRSA: No Surgical History: other - Vaccination History Hx Tetanus, Diphtheria Vaccination: Yes Hx Influenza Vaccination: Yes Hx Pneumococcal Vaccination: No Immunizations Up to Date: Yes - Social History Hx Tobacco Use: No Hx Chewing Tobacco Use: No Hx Alcohol Use: No Hx Substance Use: No Hx Substance Use Treatment: Yes Hx Depression: Yes Hx Physical Abuse: No Hx Emotional Abuse: No Hx Suspected Abuse: No - Female History Patient : No Family Medical History - Family History Father Living Status: Still Living Hx Family Diabetes: Yes - dad Hx Family Cancer: Yes - BONE CANCER Mother Family History: Unknown Living Status: Physical Exam - Physical Exam General Appearance: Alert, Anxious, Obvious distress, Well Developed, Well Groomed, Well Hydrated Eye Exam: bilateral normal Nasal Exam: normal inspection Throat Exam: normal mouth inspection, other - RIGHT LOWER FIRST MOLAR HAS A FILLING THAT IS COMING OUT AND IS VERY TENDER. Departure - Departure Clinical Impression: Dental caries Time of Disposition: 23:18 Disposition: Discharge to Home or Self Care Condition: Fair Departure Forms: ED Discharge - Pt. Copy, Patient Portal Self Enrollment Instructions: DI for Dental Pain Referrals: Randee Gonzales NP [Primary Care Provider] - 1-2 Weeks Prescriptions: Acetaminophen W/ Codeine [Tylenol W/ CODEINE #3] 1 ea PO Q6HRS #15 Clindamycin HCl 300 mg PO Q6HRS #40 cap Home Medications: Ambulatory Orders traZODone HCL [Desyrel] 100 mg PO BEDTIME 12/03/17 Aspirin 325 mg PO DAILY tab 02/25/18 Insulin Lispro [Humalog] 0 units SUBCU ACHS pen 02/25/18 [place]-3 Fatty Acids [Fish Oil] 1,200 mg PO DAILY #30 cap 02/25/18 Insulin Detemir [Levemir Pen] 16 units SUBCU BEDTIME 05/18/18 Metformin HCl 1,000 mg PO BID 05/18/18 Gemfibrozil [Lopid] 600 mg PO BIDAC 08/16/18 Ondansetron [Zofran Odt] 4 mg PO Q4H PRN #10 tab 08/17/18 Acetaminophen W/ Codeine [Tylenol W/ CODEINE #3] 1 ea PO Q6HRS #15 09/17/18 Clindamycin HCl 300 mg PO Q6HRS #40 cap 09/17/18 Additional Instructions: MUST SEE A DENTIST SONIA
== END 2018-09-17 23:30 | disposition home or self-care (01) ==
LOC: ER 22:41
DX: K02.9 Dental caries, unspecified (principal); F32.9 Major depressive disorder, single episode, unspecified; I10 Essential (primary) hypertension; E11.9 Type 2 diabetes mellitus without complications; Z79.4 Long term (current) use of insulin; Z79.82 Long term (current) use of aspirin; Z79.899 Other long term (current) drug therapy

== ENCOUNTER 2019-01-25 20:28 | Emergency (ER) | payer OTHER ==
[2019-01-25 20:41] VITALS: O2SAT 98
[2019-01-25] MEDS ORDERED: OPHTHALMIC SALT SOLUTION 120 ML BTTL ONE (21:04)
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
[2019-01-25] MEDS ORDERED: ERYTHROMYCIN OPHTH OINT 1 APPLIC RIGHT_EYE ONE (21:31)
[2019-01-25 21:40] VITALS: BP 134/76; TEMP 98.1
== END 2019-01-25 21:37 | disposition home or self-care (01) ==
LOC: ER 20:28
DX: H01.002 Unspecified blepharitis right lower eyelid (principal); E11.9 Type 2 diabetes mellitus without complications; I10 Essential (primary) hypertension; I51.9 Heart disease, unspecified; Z79.82 Long term (current) use of aspirin; Z79.4 Long term (current) use of insulin; Z79.899 Other long term (current) drug therapy

== ENCOUNTER 2019-04-21 17:41 | Observation (INO) | payer OTHER ==
[2019-04-21] MEDS ORDERED: SODIUM CHLORIDE 0.9% (FLUSH) 10 ML SYG IV PRN ×2 (18:15→21:06)
[2019-04-21] MEDS ORDERED: SODIUM CHLORIDE 0.9% 1000ML 1,000 ML IVS PRN (18:15)
[2019-04-21] MEDS ORDERED: ONDANSETRON INJ 4 MG/2 ML VIAL IV ONE (18:17)
--- NOTE | 2019-04-21 18:22 | ED.PDOC ---
History of Present Illness - General Chief Complaint: General Stated Complaint: PAIN EVERYWHERE D/T HEAT ALL DAY Time Seen by Provider: 04/21/19 18:15 Source: patient, RN notes reviewed, Vital Signs reviewed Exam Limitations: no limitations Additional Information: Pt presents with c/o not sweating, overly hot, body cramps and associated nausea. No v/d. Pt working outside all day long in the heat. He thought he was drinking enough water. Pt became overheated and went inside and tried to cool off by putting cold water on his arms. - History of Present Illness Timing/Duration: 4-6 hours Severity: moderate Improving Factors: cold therapy Worsening Factors: movement Associated Symptoms: fever/chills, malaise, nausea/vomiting - nausea only , weakness Allergies/Adverse Reactions: Allergies NO KNOWN ALLERGY Allergy (Verified 04/21/19 18:20) Home Medications: Ambulatory Orders traZODone HCL [Desyrel] 100 mg PO BEDTIME 12/03/17 Aspirin 325 mg PO DAILY tab 02/25/18 Insulin Lispro [Humalog] 0 units SUBCU ACHS pen 02/25/18 Pledger-3 Fatty Acids [Fish Oil] 1,200 mg PO DAILY #30 cap 02/25/18 Insulin Detemir [Levemir Pen] 16 units SUBCU BEDTIME 05/18/18 Metformin HCl [Metformin Hydrochloride] 1,000 mg PO BID 05/18/18 Gemfibrozil [Lopid] 600 mg PO BIDAC 08/16/18 Ondansetron [Zofran Odt] 4 mg PO Q4H PRN #10 tab 08/17/18 Review of Systems - Review of Systems Constitutional: States: see HPI, fever, malaise, weakness EENTM: States: no symptoms reported Respiratory: States: no symptoms reported Cardiology: States: no symptoms reported. Denies: chest pain, palpitations, syncope Gastrointestinal/Abdominal: States: nausea. Denies: abdominal pain, constipation, diarrhea Genitourinary: States: no symptoms reported. Denies: dysuria, frequency Musculoskeletal: States: back pain, joint pain, muscle pain Neurological: States: anxiety, headache Endocrine: States: flushing, intolerance to heat. Denies: increased hunger, increased thirst, increased urine Hematologic/Lymphatic: States: no symptoms reported All other Systems: Reviewed and Negative Past Medical History (General) - Patient Medical History Hx Seizures: No Hx Stroke: No Hx Dementia: No Hx Asthma: No Hx of COPD: No Hx Cardiac Disorders: Yes Hx Congestive Heart Failure: No Hx Pacemaker: No Hx Hypertension: Yes Hx Thyroid Disease: No Hx Diabetes: Yes Hx Gastroesophageal Reflux: No Hx Renal Disease: No Hx Cancer: No Hx of HIV: No Hx Hepatitis C: No Hx MRSA: No - Vaccination History Hx Tetanus, Diphtheria Vaccination: Yes - 4 months ago Hx Influenza Vaccination: No Hx Pneumococcal Vaccination: No - Social History Hx Tobacco Use: No Hx Chewing Tobacco Use: No Hx Alcohol Use: Yes Hx Substance Use: No Hx Substance Use Treatment: No Hx Depression: No Hx Physical Abuse: No Hx Emotional Abuse: No Hx Suspected Abuse: No - Female History Patient : No Family Medical History - Family History Father Family History: No Known Living Status: Still Living Hx Family Asthma: No Hx Family Congestive Heart Failure: No Hx Family Diabetes: Yes - dad Hx Family Cancer: Yes - BONE CANCER Mother Family History: Unknown Living Status: Physical Exam - Physical Exam General Appearance: Alert, Anxious, Ill Appearing, Well Developed, Well Nourished Eye Exam: bilateral normal Ears, Nose, Throat: hearing grossly normal, normal ENT inspection, other - dry mucous membranes Neck: non-tender, full range of motion, supple Respiratory: chest non-tender, lungs clear, normal breath sounds, no respiratory distress, no accessory muscle use, respiratory distress Cardiovascular/Chest: normal peripheral pulses, regular rate, rhythm, no edema, no gallop, no JVD, no murmur Peripheral Pulses: radial,right: 2+, radial,left: 2+ Gastrointestinal/Abdominal: normal bowel sounds, non tender, soft, no organomegaly, no pulsatile mass Back Exam: normal inspection, no CVA tenderness, no vertebral tenderness Extremity: normal range of motion, non-tender, normal inspection, no pedal edema 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 Pt with acute renal failure. Plan on admission for continued hydration. D/w Bala Gustafson. Accepts for admission. D/w patient and his family. They voice understanding and agreement with POC. - Results/Orders Results/Orders: 04/21/19 18:15 Sodium Chloride 0.9% (Flush) [Saline Flush Syringe] 10 ml IV PRN PRN Sodium Chloride 0.9% 1000ML [Ns 1000 ml] 1,000 ml IVS .QD 04/21/19 18:16 IV Care:Saline Lock per Protoc QSHIFT URINALYSIS Stat 04/21/19 18:30 EKG STAT Laboratory Results - last 24 hr 04/21/19 04/21/19 18:20 18:20 WBC 15.5 H RBC 5.53 Hgb 16.1 Hct 47.8 MCV 86.5 MCH 29.0 MCHC 33.6 RDW 14.6 H Plt Count 346 MPV 8.1 Absolute Neuts (auto) 12.50 H Absolute Lymphs (auto) 1.90 Absolute Monos (auto) 1.00 H Absolute Eos (auto) 0.00 Absolute Basos (auto) 0.10 Neutrophils % 80.7 H Lymphocytes % 12.3 L Monocytes % 6.1 Eosinophils % 0.2 L Basophils % 0.7 Sodium 133 L Potassium 4.7 Chloride 97 L Carbon Dioxide 20 L Anion Gap 20.7 H BUN 28 H Creatinine 2.71 H BUN/Creatinine Ratio 10.3 Random Glucose 137 H Serum Osmolality 274.0 L Calcium 10.3 H Total Bilirubin 1.8 H Direct Bilirubin 0.4 H Indirect Bilirubin 1.4 H AST 32 ALT 32 Alkaline Phosphatase 66 Creatine Kinase 243 H* Serum Total Protein 9.4 H Albumin 5.0 Lipase 31 Departure - Departure Clinical Impression: Acute renal failure due to rhabdomyolysis Heat stroke Qualifiers: Encounter type: initial encounter Qualified Code(s): T67.0XXA - Heatstroke and sunstroke, initial encounter Rhabdomyolysis Qualifiers: Rhabdomyolysis type: non-traumatic Qualified Code(s): M62.82 - Rhabdomyolysis Time of Disposition: 19:30 Disposition: Admit Patient Condition: Fair Departure Forms: ED Discharge - Pt. Copy, Patient Portal Self Enrollment Referrals: Randee Gonzales NP [Primary Care Provider] - 1-2 Weeks Home Medications: Ambulatory Orders traZODone HCL [Desyrel] 100 mg PO BEDTIME 12/03/17 Aspirin 325 mg PO DAILY tab 02/25/18 Insulin Lispro [Humalog] 0 units SUBCU ACHS pen 02/25/18 Pledger-3 Fatty Acids [Fish Oil] 1,200 mg PO DAILY #30 cap 02/25/18 Insulin Detemir [Levemir Pen] 16 units SUBCU BEDTIME 05/18/18 Metformin HCl [Metformin Hydrochloride] 1,000 mg PO BID 05/18/18 Gemfibrozil [Lopid] 600 mg PO BIDAC 08/16/18 Ondansetron [Zofran Odt] 4 mg PO Q4H PRN #10 tab 08/17/18 Decision To Admit - Decistion To Admit Decision to Admit Reason: Admit from ER Decision to Admit Date: 04/21/19 Decision to Admit Time: 19:30
[2019-04-21] MEDS ORDERED: DEXTROSE 50% 25 GM/50 ML SYG IV PRN (21:06)
[2019-04-21] MEDS ORDERED: ACETAMINOPHEN 325 MG TAB PO PRN (21:06)
[2019-04-21] MEDS ORDERED: GLUCAGON INJ 1 MG VIAL SUBCU PRN (21:06)
[2019-04-21] MEDS ORDERED: ONDANSETRON INJ 4 MG/2 ML VIAL IV PRN (21:06)
[2019-04-21] MEDS ORDERED: SODIUM CHLORIDE 0.9% 1000ML 1,000 ML IVS ONE (21:15)
[2019-04-21] MEDS ORDERED: IV SET AND CAP CHANGE INJ INJ SCH (21:30)
[2019-04-21] MEDS: SODIUM CHLORIDE 0.9% 1000ML 1,000 ML IVS PRN (22:36)
[2019-04-22] MEDS: SODIUM CHLORIDE 0.9% 1000ML 1,000 ML IVS PRN (04:33)
[2019-04-22] MEDS: INSULIN LISPRO 100 UNITS/ML PEN SUBCU SCH ×2 (07:19→11:34)
[2019-04-22 09:34] VITALS: O2SAT 98
[2019-04-22] MEDS ORDERED: LACTATED RINGERS 1,000 ML IVS ONE (09:42)
[2019-04-22 09:47] VITALS: BP 125/80; TEMP 97.5
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
== END 2019-04-22 11:52 | disposition home or self-care (01) ==
LOC: ER 17:41 → MS 20:58
PROVIDERS: ADMIT Nurse Practitioner Family; ATTEND Nurse Practitioner Family
DX: T67.5XXA Heat exhaustion, unspecified, initial encounter (principal); E86.0 Dehydration; N17.9 Acute kidney failure, unspecified; R74.8 Abnormal levels of other serum enzymes; E11.9 Type 2 diabetes mellitus without complications; E87.8 Other disorders of electrolyte and fluid balance, not elsewhere classified; E87.6 Hypokalemia; E87.1 Hypo-osmolality and hyponatremia; M62.82 Rhabdomyolysis; E78.1 Pure hyperglyceridemia; F32.9 Major depressive disorder, single episode, unspecified; I10 Essential (primary) hypertension; G47.00 Insomnia, unspecified; K75.81 Nonalcoholic steatohepatitis (NASH); X30.XXXA Exposure to excessive natural heat, initial encounter; Y93.89 Activity, other specified; Y92.65 Oil rig as the place of occurrence of the external cause; Y99.0 Civilian activity done for income or pay; Z79.4 Long term (current) use of insulin; Z79.82 Long term (current) use of aspirin; Z79.899 Other long term (current) drug therapy; Z80.8 Family history of malignant neoplasm of other organs or systems; Z83.3 Family history of diabetes mellitus
CPT/HCPCS: 96361 ×2; 96374; J2405; J7030 ×4; J7120; 80048; 80053; 82948 ×3; 36415 ×4; 81001 ×2; 80076; 85025 ×2; 82550 ×2; 83690; 36416 ×2; 94760 ×2; 99285; 93005; G0378

== ENCOUNTER 2019-10-23 23:56 | Emergency (ER) | payer OTHER ==
[2019-10-24] MEDS ORDERED: ONDANSETRON INJ 4 MG/2 ML VIAL IV ONE
[2019-10-24] MEDS ORDERED: SODIUM CHLORIDE 0.9% (FLUSH) 10 ML SYG IV PRN
--- NOTE | 2019-10-24 | ED.PDOC ---
History of Present Illness - General Time Seen by Provider: 10/23/19 23:58 Source: patient - History of Present Illness Initial Comments: 39 yo male with PMH of DM2 who presents with cc of cough and vomiting. Onset of illness earlier this afternoon with rapid worsening. Reports frequent nonproductive cough and mild dyspnea, worse with activity/exertion. Reports numerous episodes of NBNB emesis beginning approx 9 hours ago, which lasted for a couple hours and has largely improved now. Also reports 3 episodes of watery diarrhea today. Reports intermittent brief sharp moderate chest pains to left chest wall which radiate to left axilla which come on sporadically, worse with activity and coughing, no improvement at rest. Reports sore throat but believes from coughing and emesis. Also reports fatigue, generalized weakness. Denies any fevers, chills, abd pain, urinary sx's, FUENTES, neck stiffness. No known recent sick contacts. No recent travel to large cities. His GF works in a NH so he wanted to get checked out and is worried he may get her sick. Allergies/Adverse Reactions: Allergies NO KNOWN ALLERGY Allergy (Verified 10/24/19 00:32) Home Medications: Ambulatory Orders Insulin Lispro [Humalog] 0 units SUBCU ACHS pen 02/25/18 Insulin Detemir [Levemir Pen] 60 units SUBCU BEDTIME 05/18/18 Amoxicillin 1,000 mg PO DAILY 9 Days #18 cap 10/24/19 Review of Systems - Review of Systems Review of Systems: 10/24/19 00:19 as per HPI All other Systems: Reviewed and Negative Past Medical History (General) - Patient Medical History Hx Seizures: No Hx Stroke: No Hx Dementia: No Hx Asthma: No Hx of COPD: No Hx Cardiac Disorders: Yes Hx Congestive Heart Failure: No Hx Pacemaker: No Hx Hypertension: Yes Hx Thyroid Disease: No Hx Diabetes: Yes Hx Gastroesophageal Reflux: No Hx Renal Disease: No Hx Cancer: No Hx of HIV: No Hx Hepatitis C: No Hx MRSA: No - Vaccination History Hx Tetanus, Diphtheria Vaccination: Yes - 4 months ago Hx Influenza Vaccination: No Hx Pneumococcal Vaccination: No - Social History Hx Tobacco Use: No Hx Chewing Tobacco Use: No Hx Alcohol Use: Yes Hx Substance Use: No Hx Substance Use Treatment: No Hx Depression: No Hx Physical Abuse: No Hx Emotional Abuse: No Hx Suspected Abuse: No - Female History Patient : No Family Medical History - Family History Father Family History: No Known Living Status: Still Living Hx Family Asthma: No Hx Family Congestive Heart Failure: No Hx Family Diabetes: Yes - dad Hx Family Cancer: Yes - BONE CANCER Mother Family History: Unknown Living Status: Physical Exam - Physical Exam General Appearance: Alert, Comfortable, No apparent distress Eye Exam: bilateral normal Ears, Nose, Throat: hearing grossly normal, other - normal TM's BL. Pharynx and tonsils with mild erythema but no exudates or tonsillar swelling Neck: non-tender, full range of motion, supple, normal inspection Respiratory: lungs clear, normal breath sounds, no respiratory distress, no accessory muscle use Cardiovascular/Chest: normal peripheral pulses, regular rate, rhythm, no edema, no gallop, no JVD, no murmur Peripheral Pulses: radial,right: 2+, radial,left: 2+ Gastrointestinal/Abdominal: non tender, soft, no organomegaly Back Exam: normal inspection, no CVA tenderness, no vertebral tenderness Extremity: normal range of motion, non-tender, normal inspection, no pedal edema, no calf tenderness Neurologic: dependency counselor II-XII nml as tested, no motor/sensory deficits, alert, normal mood/affect, oriented x 3 Skin Exam: normal color, warm/dry Lymphatic: no adenopathy Progress - Progress Progress: 10/24/19 00:21 Flu-like illness -with: cough, n/v/d, sore throat, fatigue/malaise, chest pain, dyspnea -consider: PNA, flu, strep, gastroenteritis, colitis, ACS, pleurisy. COVID possible but seems unlikely as no recent travel to [facility] and no known sick contacts. Staff wearing PPE into room as precautionary measure. -obtain flu, strep, CXR, labs, UA, EKG, trop -pt refuses IV. Will give Zofran 8 mg SL & allow PO fluids 10/24/19 00:43 -Lab mallory blood but the sample hemolyzed. Pt refused any repeat blood draws given his reported fear of needles. Thus will proceed with flu, strep, EKG, & CXR for now. 10/24/19 00:54 -Strep positive, flu negative. CXR no acute processes per my read. -Discussed dx of strep pharyngitis and trx options - pt opts for oral amoxicllin x10 days. Will give first dose in ED. -Dc home in good condition, return warnings discussed. Eleuterio Carrasquillo MD Billing #[id number] 10/24/19 00:01 AMYLASE Stat BASIC METABOLIC PANEL Stat HEPATIC FUNCTION PANEL Stat LIPASE Stat CBC (AUTOMATED) W/AUTO DIFF Stat 10/24/19 00:03 URINALYSIS Stat 10/24/19 00:12 EKG Assessment ONCE 10/24/19 00:13 TROPONIN-I Stat 10/24/19 00:15 EKG STAT Laboratory Results - last 24 hr 10/24/19 00:03 Group A Strep Rapid Positive - EKG/XRAY/CT EKG: Sinus - NSR, HR 80, no ST elevs or q waves, axis & intervals normal, compared to 04/21/19 EKG sinus tachycardia now resolved. XRAY: chest - no acute processes per my read Departure - Departure Clinical Impression: Strep pharyngitis Time of Disposition: 00:46 Disposition: Discharge to Home or Self Care Condition: Good Instructions: Strep Throat (DC) Diet: diabetic diet Activity: increase activity as tolerated Referrals: Randee Gonzales NP [Primary Care Provider] - 1-2 Weeks Prescriptions: Amoxicillin 1,000 mg PO DAILY 9 Days #18 cap Home Medications: Ambulatory Orders Insulin Lispro [Humalog] 0 units SUBCU ACHS pen 02/25/18 Insulin Detemir [Levemir Pen] 60 units SUBCU BEDTIME 05/18/18 Amoxicillin 1,000 mg PO DAILY 9 Days #18 cap 10/24/19 Additional Instructions: Remain well hydrated and advance diet and activity level gradually as tolerated. Return if symptoms are worsening or other concerning symptoms develop. Follow up with your primary care doctor in 1-2 weeks or sooner as needed.
[2019-10-24] MEDS ORDERED: SODIUM CHLORIDE 0.9% 1000ML 1,000 ML IVS ONE (00:01)
[2019-10-24] MEDS ORDERED: ONDANSETRON ODT 8 MG TAB SL ONE (00:16)
[2019-10-24 00:32] VITALS: BP 143/95; TEMP 99; O2SAT 99
[2019-10-24] MEDS ORDERED: AMOXICILLIN 500 MG CAP PO ONE (00:52)
--- NOTE | 2019-10-24 00:53 | RAD ---
EXAM DESCRIPTION: XR Chest,1 View CLINICAL HISTORY: cough, chest pain, dyspnea TECHNIQUE: Single frontal view of the chest is submitted. COMPARISON: 06/18/2018 FINDINGS: Heart: The cardiothoracic silhouette is within normal limits. Lungs: No focal consolidation. Mediastinum: Unremarkable Pleura: No appreciable effusion. No pneumothorax. Bones: Intact Upper abdomen: Unremarkable IMPRESSION: No acute disease. Electronically signed by: Keagan Azevedo MD 10/24/2019 12:52 AM CDT
== END 2019-10-24 01:02 | disposition home or self-care (01) ==
LOC: ER 23:56
DX: J02.0 Streptococcal pharyngitis (principal); R07.89 Other chest pain; R19.7 Diarrhea, unspecified; R11.10 Vomiting, unspecified; E11.9 Type 2 diabetes mellitus without complications; I10 Essential (primary) hypertension; I51.9 Heart disease, unspecified

== ENCOUNTER 2020-03-26 07:48 | Emergency (ER) | payer OTHER ==
--- NOTE | 2020-03-26 07:56 | ED.PDOC ---
History of Present Illness - General Time Seen by Provider: 03/26/20 07:53 Source: patient, RN notes reviewed, Vital Signs reviewed Additional Information: 40-year-old male patient, presents to the ER with trauma. 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 But today woke up with some swelling, patient is able to flex and extend the finger without any difficulty Patient denies fever chills coughing - History of Present Illness Occurred: yesterday Pain - Upper Extremity: moderate: Hand, right Method of Injury: other - crushed Improving Factors: nothing Worsening Factors: nothing Allergies/Adverse Reactions: Allergies NO KNOWN ALLERGY Allergy (Verified 03/26/20 08:05) Home Medications: Ambulatory Orders Insulin Lispro [Humalog] 0 units SUBCU ACHS pen 02/25/18 Insulin Detemir [Levemir Pen] 60 units SUBCU BEDTIME 05/18/18 Acetaminophen W/ Codeine [Tylenol W/ CODEINE #3] 1 ea PO Q6HR #20 ea 03/26/20 Review of Systems - Review of Systems Constitutional: States: no symptoms reported EENTM: States: no symptoms reported Respiratory: States: no symptoms reported Cardiology: States: no symptoms reported Gastrointestinal/Abdominal: States: no symptoms reported Genitourinary: States: no symptoms reported Musculoskeletal: States: no symptoms reported Skin: States: no symptoms reported Neurological: States: no symptoms reported Endocrine: States: no symptoms reported Hematologic/Lymphatic: States: no symptoms reported Past Medical History (General) - Patient Medical History Hx Seizures: No Hx Stroke: No Hx Dementia: No Hx Asthma: No Hx of COPD: No Hx Cardiac Disorders: Yes Hx Congestive Heart Failure: No Hx Pacemaker: No Hx Hypertension: Yes Hx Thyroid Disease: No Hx Diabetes: Yes Hx Gastroesophageal Reflux: No Hx Renal Disease: No Hx Cancer: No Hx of HIV: No Hx Hepatitis C: No Hx MRSA: No - Vaccination History Hx Tetanus, Diphtheria Vaccination: Yes - 4 months ago Hx Influenza Vaccination: No Hx Pneumococcal Vaccination: No - Social History Hx Tobacco Use: No Hx Chewing Tobacco Use: No Hx Alcohol Use: Yes Hx Substance Use: No Hx Substance Use Treatment: No Hx Depression: No Hx Physical Abuse: No Hx Emotional Abuse: No Hx Suspected Abuse: No - Female History Patient : No Family Medical History - Family History Father Family History: No Known Living Status: Still Living Hx Family Asthma: No Hx Family Congestive Heart Failure: No Hx Family Diabetes: Yes - dad Hx Family Cancer: Yes - BONE CANCER Mother Family History: Unknown Living Status: Physical Exam - Physical Exam General Appearance: Alert, Well Developed, Well Groomed, Well Hydrated, Well Nourished Eyes, Ears, Nose, Throat Exam: PERRL/EOMI, normal ENT inspection Neck: non-tender, full range of motion, supple, normal inspection Cardiovascular/Respiratory: regular rate, rhythm, no M/R/G, normal peripheral pulses, no JVD, normal breath sounds, no respiratory distress Abdominal Exam: non-tender, no organomegaly Back Exam: normal inspection, no CVA tenderness, no vertebral tenderness Elbow/Forearm Exam: normal inspection Wrist Exam: normal inspection Hand Exam: swelling - dorsum of the second digit with a small no infected abrasion, no neurological deficits Neuro/Tendon: normal sensation, normal motor functions, normal tendon functions Mental Status: alert, oriented x 3 Skin Exam: normal color Progress - Progress Progress: x rays hand, and evaluated his x-rays I do not see any signs of fractures or dislocation, I did discuss with the patient that if there is a fracture he might be small that I am not seeing it but obviously I will treat him as if he had a fracture so we will put him on a metal splint, and will discharge home with pain medications. Discussed with the patient, that if he sees signs of infection such as the digit becoming more looked like a sausage, flex and painful and it hurts when you extend or pain in the tendon sheath but he will have to come in immediately 03/26/20 08:05 Departure - Departure Clinical Impression: Finger abrasion Qualifiers: Encounter type: initial encounter Qualified Code(s): S60.419A - Abrasion of unspecified finger, initial encounter Sprain, finger Qualifiers: Encounter type: initial encounter Finger: index finger Sprain of finger site: interphalangeal joint Laterality: right Qualified Code(s): S63.630A - Sprain of interphalangeal joint of right index finger, initial encounter Disposition: Discharge to Home or Self Care Condition: Fair Instructions: Jammed Finger (DC), Finger Sprain (DC) Diet: resume usual diet Referrals: Randee Gonzales NP [Primary Care Provider] - 1-2 Weeks Prescriptions: Acetaminophen W/ Codeine [Tylenol W/ CODEINE #3] 1 ea PO Q6HR #20 ea Home Medications: Ambulatory Orders Insulin Lispro [Humalog] 0 units SUBCU ACHS pen 02/25/18 Insulin Detemir [Levemir Pen] 60 units SUBCU BEDTIME 05/18/18 Acetaminophen W/ Codeine [Tylenol W/ CODEINE #3] 1 ea PO Q6HR #20 ea 03/26/20
[2020-03-26 08:05] VITALS: BP 138/93; TEMP 97.2; O2SAT 98
--- NOTE | 2020-03-26 08:25 | RAD ---
EXAM DESCRIPTION: Right hand, 3 radiographs CLINICAL HISTORY: Trauma to the index finger. FINDINGS/ IMPRESSION: Normal mineralization. Normal alignment No focal demineralization or inflammatory erosion. No fracture or acute osteochondral lesion. Soft tissue injury of the distal index finger along the ulnar side tip of the finger adjacent to the distal phalanx. Soft tissue swelling and irregularity. No radiopaque foreign body Electronically signed by: Elías Trevino MD 03/26/2020 8:09 AM CDT
== END 2020-03-26 08:16 | disposition home or self-care (01) ==
LOC: ER 07:48
DX: S60.410A Abrasion of right index finger, initial encounter (principal); S63.630A Sprain of interphalangeal joint of right index finger, initial encounter; E11.9 Type 2 diabetes mellitus without complications; I10 Essential (primary) hypertension; I51.9 Heart disease, unspecified; W23.0XXA Caught, crushed, jammed, or pinched between moving objects, initial encounter; Y93.89 Activity, other specified; Y92.9 Unspecified place or not applicable; Z79.4 Long term (current) use of insulin

== ENCOUNTER 2020-03-30 21:34 | Emergency (ER) | payer OTHER ==
--- NOTE | 2020-03-30 22:06 | ED.PDOC ---
History of Present Illness - General Chief Complaint: Drug or Alcohol Abuse Stated Complaint: overdose yesterday, needs med clearance Time Seen by Provider: 03/30/20 21:35 Source: patient, RN notes reviewed, Vital Signs reviewed, police Exam Limitations: no limitations - History of Present Illness Initial Comments: Patient is a 40-year-old male with history of depression. States for the past 2 weeks he has had increased stressors in his life with family and had a sense of helplessness. Stopped taking his depression medications roughly 2 weeks ago. Last night he had thoughts of hurting himself and took 13 trazodone pills in hopes of going to sleep and not waking up. His ex-girlfriend found him this morning and called police and notified [facility] and they have evaluated patient and suggested placement at inpatient psych facility in [place]. Please brought him to ED for medical clearance for admission to inpatient psych. Patient denies fever, chest pain, shortness of breath, nausea, vomiting, abdominal pain or any medical concerns at this time. Allergies/Adverse Reactions: Allergies NO KNOWN ALLERGY Allergy (Verified 03/26/20 08:05) Home Medications: Ambulatory Orders Insulin Lispro [Humalog] 0 units SUBCU ACHS pen 02/25/18 Insulin Detemir [Levemir Pen] 60 units SUBCU BEDTIME 05/18/18 Acetaminophen W/ Codeine [Tylenol W/ CODEINE #3] 1 ea PO Q6HR #20 ea 03/26/20 Review of Systems - Review of Systems Constitutional: Denies: chills, fever, weakness EENTM: Denies: blurred vision, nose congestion Respiratory: Denies: cough, short of breath Cardiology: Denies: chest pain, palpitations, syncope Gastrointestinal/Abdominal: Denies: abdominal pain, nausea, vomiting Musculoskeletal: Denies: back pain, neck pain Skin: States: no symptoms reported Neurological: States: depressed, emotional problems. Denies: headache All other Systems: Reviewed and Negative Past Medical History (General) - Patient Medical History Hx Seizures: No Hx Stroke: No Hx Dementia: No Hx Asthma: No Hx of COPD: No Hx Cardiac Disorders: Yes Hx Congestive Heart Failure: No Hx Pacemaker: No Hx Hypertension: Yes Hx Thyroid Disease: No Hx Diabetes: Yes Hx Gastroesophageal Reflux: No Hx Renal Disease: No Hx Cancer: No Hx of HIV: No Hx Hepatitis C: No Hx MRSA: No - Vaccination History Hx Tetanus, Diphtheria Vaccination: Yes - 4 months ago Hx Influenza Vaccination: No Hx Pneumococcal Vaccination: No - Social History Hx Tobacco Use: No Hx Chewing Tobacco Use: No Hx Alcohol Use: Yes Hx Substance Use: No Hx Substance Use Treatment: No Hx Depression: No Hx Physical Abuse: No Hx Emotional Abuse: No Hx Suspected Abuse: No - Female History Patient : No Family Medical History - Family History Father Family History: No Known Living Status: Still Living Hx Family Asthma: No Hx Family Congestive Heart Failure: No Hx Family Diabetes: Yes - dad Hx Family Cancer: Yes - BONE CANCER Mother Family History: Unknown Living Status: Physical Exam - Physical Exam General Appearance: Alert, No apparent distress Neck: non-tender, supple Respiratory: chest non-tender, lungs clear, normal breath sounds, no respiratory distress Cardiovascular/Chest: regular rate, rhythm, no edema, no murmur Gastrointestinal/Abdominal: non tender, soft, no pulsatile mass Extremity: normal range of motion, normal inspection Neurologic: no motor/sensory deficits, alert, oriented x 3, other - flat affect Skin Exam: normal color, warm/dry Progress - Progress Progress: 03/30/20 22:45 Patient presents with prescription for officer for medical clearance for inpatient psych. Vital signs are stable. EKG and labs are reassuring. Patient is medically cleared for psychiatric treatment at this time. Will notify [facility] and attempt placement 03/30/20 23:50 D/W Dr. Ellis, has accepted to [place] in psych - Results/Orders Results/Orders: EKG NSR, rate 70, nml QRS interval, No ischemic changes. no prolonged QT interval 03/30/20 21:40 Telemetry Q4H 03/30/20 21:45 EKG STAT Laboratory Results - last 24 hr 03/30/20 03/30/20 03/30/20 22:10 22:10 22:10 WBC 9.4 RBC 5.39 Hgb 16.1 Hct 46.8 MCV 86.7 MCH 29.9 MCHC 34.5 RDW 13.6 Plt Count 278 MPV 7.6 Absolute Neuts (auto) 6.00 Absolute Lymphs (auto) 2.40 Absolute Monos (auto) 0.70 Absolute Eos (auto) 0.20 Absolute Basos (auto) 0.10 Neutrophils % 63.8 Lymphocytes % 26.0 Monocytes % 7.1 Eosinophils % 2.1 Basophils % 1.0 Sodium 138 Potassium 3.6 Chloride 108 Carbon Dioxide 21 Anion Gap 12.6 BUN 15 Creatinine 1.03 BUN/Creatinine Ratio 14.6 Random Glucose 142 H Serum Osmolality 278.9 Calcium 8.8 Total Bilirubin 0.6 AST 18 ALT 27 Alkaline Phosphatase 59 Serum Total Protein 7.7 Albumin 4.4 Globulin 3.3 Albumin/Globulin Ratio 1.3 Urine Color Urine Appearance Urine pH Ur Specific [place] Urine Protein Urine Glucose (UA) Urine Ketones Urine Blood Urine Nitrite Urine Bilirubin Urine Urobilinogen Ur Leukocyte Esterase Urine RBC Urine WBC Ur Epithelial Cells Calcium Oxalate Crystal Urine Bacteria Urine Mucus Salicylates Urine Opiates Screen Acetaminophen < 10.0 L Urine Barbiturates Ur Phencyclidine Scrn U Amphetamin/Meth Scrn U Benzodiazepines Scrn U Cocaine Metab Screen U Cannabinoids Screen Ethyl Alcohol < 5.40 03/30/20 03/30/20 22:25 22:25 WBC RBC Hgb Hct MCV MCH MCHC RDW Plt Count MPV Absolute Neuts (auto) Absolute Lymphs (auto) Absolute Monos (auto) Absolute Eos (auto) Absolute Basos (auto) Neutrophils % Lymphocytes % Monocytes % Eosinophils % Basophils % Sodium Potassium Chloride Carbon Dioxide Anion Gap BUN Creatinine BUN/Creatinine Ratio Random Glucose Serum Osmolality Calcium Total Bilirubin AST ALT Alkaline Phosphatase Serum Total Protein Albumin Globulin Albumin/Globulin Ratio Urine Color Yellow Urine Appearance Clear Urine pH 6.0 Ur Specific [place] >= 1.030 Urine Protein 30 Urine Glucose (UA) Negative Urine Ketones Negative Urine Blood Negative Urine Nitrite Negative Urine Bilirubin Small H Urine Urobilinogen 0.2 Ur Leukocyte Esterase Negative Urine RBC 0 Urine WBC 0-1 Ur Epithelial Cells 0 Calcium Oxalate Crystal 1+ Urine Bacteria 0 Urine Mucus Trace Salicylates Urine Opiates Screen Negative Acetaminophen Urine Barbiturates Negative Ur Phencyclidine Scrn Negative U Amphetamin/Meth Scrn Positive H U Benzodiazepines Scrn Negative U Cocaine Metab Screen Negative U Cannabinoids Screen Negative Ethyl Alcohol Departure - Departure Clinical Impression: Depressed affect, Suicidal ideation Time of Disposition: 22:47 Disposition: [facility] Condition: Fair Departure Forms: ED Discharge - Pt. Copy, Patient Portal Self Enrollment Instructions: DI for Drug Overdose in Adults, Depression, Adult (DC) Diet: resume usual diet Activity: increase activity as tolerated Referrals: Janet,Randee Anel, [employer] [Primary Care Provider] - 1-2 Weeks Home Medications: Ambulatory Orders Insulin Lispro [Humalog] 0 units SUBCU ACHS pen 02/25/18 Insulin Detemir [Levemir Pen] 60 units SUBCU BEDTIME 05/18/18 Acetaminophen W/ Codeine [Tylenol W/ CODEINE #3] 1 ea PO Q6HR #20 ea 03/26/20 Transfer to Outside Facility - Transfer Information Decision to Transfer Date: 03/30/20 Decision to Transfer Time: 23:50 Reason for Transfer: specialized care not available Accepting Provider:: Dr. Ellis Accepting Facility: [facility]
[2020-03-30 22:42] VITALS: TEMP 98
[2020-03-30 23:34] VITALS: BP 122/88; O2SAT 97
== END 2020-03-31 01:05 ==
LOC: ER 21:34
DX: R45.851 Suicidal ideations (principal); F32.9 Major depressive disorder, single episode, unspecified; I10 Essential (primary) hypertension; Z79.899 Other long term (current) drug therapy

== ENCOUNTER → 2020-05-22 | Outpatient (CLI) | payer OTHER | LOC: LAB.O 09:47 | PROVIDERS: ATTEND Nurse Practitioner Family | DX: E11.9 Type 2 diabetes mellitus without complications (principal) ==